=== PATIENT | female | born 1940 | race Caucasian/White ===

== ENCOUNTER 2018-01-24 08:05 | Inpatient (IN) | payer OTHER, MEDICAID ==
[~2018-01-24] VITALS: Ht 172.7 cm; Wt 119.3 kg
[~2018-01-24 08:05] MED LIST: AMIO200T42 PO; ATOR40TA PO; CLOP75TA52 PO; FURO-93 PO; FURO40TA6 PO; GABA300C PO; GLIP10TA13 PO; HYDR-2440 PO; INSU100I13 SC; INSU100I13 SQ-INSULIN; INSULIN ASPART SQ; LEVO25TA4 PO; LOSA25TA5 PO; METO50TA82 PO; OMEP-110 PO; PANT40TA3 PO; WARF-36 PO; [UNRECOGNIZED DRUG - OTHER] SQ; insulin novolog SC; vicodin
[2018-01-24] MEDS ORDERED: SODIUM CHLORIDE FLUSH 10ML SYR IVF ONE (08:30)
[2018-01-24 08:36] LABS: BASOPHILS # (AUTO) 0.06 x10^3/uL (0-0.1); BASOPHILS % (AUTO) 1 % (0-1); EOSINOPHILS % (AUTO) 0 % (1-7); LYMPHOCYTES # (AUTO) 0.41 x10^3/uL (1-3.4); LYMPHOCYTES % (AUTO) 6 % (22-44); MD NO; MEAN CORPUSCULAR HEMOGLOBIN 28.2 pg (27.0-34.8); MEAN CORPUSCULAR HGB CONC 32.2 g/dL (32.4-35.8); MEAN CORPUSCULAR VOLUME 87.4 fL (80-100); MEAN PLATELET VOLUME 8.4 fL (7.4-10.4); MONOCYTES % (AUTO) 8 % (2-9); NEUTROPHILS # (AUTO) 5.81 x10^3/uL (1.8-6.8); NEUTROPHILS % (AUTO) 86 % (42-75); PLATELET COUNT 234 x10^3/uL (130-400); RED BLOOD COUNT 3.37 x10^6/uL (3.82-5.3); RED CELL DISTRIBUTION WIDTH 21.2 % (9.6-15.2)
[2018-01-24 08:48] LABS: ALANINE AMINOTRANSFERASE 20 U/L (12-78); ALBUMIN 3.5 g/dL (3.4-5.0); ANION GAP 10 mmol/L (5-15); CHLORIDE 106 mmol/L (98-107); CREATININE 3.27 mg/dL (0.55-1.02)
[2018-01-24] MEDS ORDERED: DEXTROSE 50%, 50ML SYRINGE ONE (08:52)
[2018-01-24 08:53] LABS: ALKALINE PHOSPHATASE 102 U/L (45-117); BILIRUBIN,TOTAL 0.8 mg/dL (0.2-1.0); TOTAL PROTEIN 7.1 g/dL (6.4-8.2); TROPONIN I 0.045 ng/mL (0.000-0.045)
[2018-01-24 09:37] LABS: FREE T4 (FREE THYROXINE) 1.85 ng/dL (0.76-1.46); THYROID STIMULATING HORMONE 3.94 mIU/L (0.358-3.740)
[2018-01-24] MEDS ORDERED: FUROSEMIDE 40 MG/4 ML IV ONE (10:00)
[2018-01-24] MEDS ORDERED: DEXTROSE 50%, 50ML SYRINGE IVPush ONE (10:30)
[2018-01-24] MEDS ORDERED: FUROSEMIDE 40 MG/4 ML ONE (10:32)
[2018-01-24] MEDS: D5%-0.9% NACL 1,000 ML IV SCH ×3 (10:50→16:00)
[2018-01-24] MEDS ORDERED: GLUCAGON 1 MG IM PRN (11:00)
[2018-01-24] MEDS ORDERED: DEXTROSE 4 GM TAB.CHEW PO PRN (11:00)
[2018-01-24] MEDS ORDERED: ONDANSETRON 2MG/ML, 2ML IVPush PRN (11:00)
[2018-01-24] MEDS ORDERED: DOCUSATE 100 MG CAPSULE PO PRN (11:00)
[2018-01-24] MEDS ORDERED: DEXTROSE 50%, 50ML SYRINGE IVPush PRN (11:00)
[2018-01-24] MEDS ORDERED: ONDANSETRON ODT 4 MG PO PRN (11:00)
[2018-01-24] MEDS ORDERED: LABETALOL 5MG/ML, 20ML IVPush PRN (11:00)
[2018-01-24] MEDS ORDERED: ENALAPRILAT 1.25 MG/ML, 2ML IVPush PRN (11:00)
[2018-01-24] MEDS: INSULIN LISPRO 100 UNITS/ML, PEN SQ-INSULIN SCH ×2 (11:12→16:00)
[2018-01-24] MEDS ORDERED: D5%-0.9% NACL 1,000 ML IV SCH (11:30)
[2018-01-24] MEDS: LEVOTHYROXINE 25 MCG TABLET PO SCH (11:30)
[2018-01-24 12:09] LABS: CULTURE INDICATED? YES; MICROSCOPIC INDICATED
[2018-01-24] MEDS ORDERED: CEFTRIAXONE 1,000 MG in DEXTROSE 5% 50 ML IV ONE (13:30)
[2018-01-24] MEDS ORDERED: CEFTRIAXONE PMX 1GM/50ML 50 ML IV SCH (14:00)
[2018-01-24 14:29] VITALS: BP 138/74
[2018-01-24 14:55] LABS: TROPONIN I 0.054 ng/mL (0.000-0.045)
[2018-01-24 15:08] LABS: INTERNATIONAL NORMALIZED RATIO 1.88 (0.93-1.1); PROTHROMBIN TIME 19.3 Seconds (9.6-11.5)
[2018-01-24] MEDS ORDERED: SUCR1TAB PO (18:25)
[2018-01-24] MEDS ORDERED: CALC0.25 PO (18:25)
[2018-01-24] MEDS ORDERED: OXYC1TAB9 PO (18:25)
[2018-01-24] MEDS ORDERED: FURO40TA6 PO (18:25)
[2018-01-24 19:35] VITALS: BP 128/68
[2018-01-24] MEDS ORDERED: OXYcodone IR 5MG TABLET ONE (21:10)
[2018-01-24] MEDS: CEFTRIAXONE 1,000 MG in DEXTROSE 5% 50 ML IV SCH (21:17)
[2018-01-24] MEDS: SODIUM CHLORIDE FLUSH 10ML SYR IVF SCH (21:20)
[2018-01-24] MEDS: METOPROLOL TARTRATE 50 MG TABLET PO SCH (21:21)
[2018-01-24] MEDS: OXYcodone 5 MG/5 ML ORAL.SOL UDC PO PRN (21:21)
[2018-01-24] MEDS: ATORVASTATIN 40 MG TABLET PO SCH (21:21)
[2018-01-24] MEDS: AMIODARONE 200 MG TABLET PO SCH (21:21)
[2018-01-24 22:14] LABS: RAPID INFLUENZA A Negative (Negative); RAPID INFLUENZA B Negative (Negative)
[2018-01-25 01:44] VITALS: BP 133/72
[2018-01-25] MEDS: D5%-0.9% NACL 1,000 ML IV SCH (02:09)
[2018-01-25 05:18] LABS: ANION GAP 9 mmol/L (5-15); CALCIUM 7.6 mg/dL (8.5-10.1); CHLORIDE 107 mmol/L (98-107)
[2018-01-25 05:19] LABS: CREATININE 3.04 mg/dL (0.55-1.02)
[2018-01-25 05:20] LABS: BASOPHILS # (AUTO) 0.05 x10^3/uL (0-0.1); BASOPHILS % (AUTO) 1 % (0-1); EOSINOPHILS # (AUTO) 0.04 x10^3/uL (0-0.4); EOSINOPHILS % (AUTO) 1 % (1-7); LYMPHOCYTES # (AUTO) 0.46 x10^3/uL (1-3.4); LYMPHOCYTES % (AUTO) 8 % (22-44); MD NO; MEAN CORPUSCULAR HEMOGLOBIN 28.4 pg (27.0-34.8); MEAN CORPUSCULAR HGB CONC 32.1 g/dL (32.4-35.8); MEAN CORPUSCULAR VOLUME 88.5 fL (80-100); MEAN PLATELET VOLUME 8.6 fL (7.4-10.4); MONOCYTES # (AUTO) 0.57 x10^3/uL (0.2-0.8); MONOCYTES % (AUTO) 10 % (2-9); NEUTROPHILS # (AUTO) 4.38 x10^3/uL (1.8-6.8); NEUTROPHILS % (AUTO) 80 % (42-75); PLATELET COUNT 224 x10^3/uL (130-400); RED BLOOD COUNT 3.06 x10^6/uL (3.82-5.3); RED CELL DISTRIBUTION WIDTH 20.8 % (9.6-15.2)
[2018-01-25] MEDS: LEVOTHYROXINE 25 MCG TABLET PO SCH (05:49)
[2018-01-25 07:00] VITALS: BP 107/68
[2018-01-25] MEDS ORDERED: PANTOPRAZOLE 40 MG IV IVPush SCH (07:30)
[2018-01-25 08:38] LABS: MICROSCOPIC INDICATED
[2018-01-25] MEDS ORDERED: FUROSEMIDE 40 MG/4 ML IV SCH ×2 (09:00→17:00)
[2018-01-25] MEDS ORDERED: LOSARTAN 25MG TABLET PO SCH (09:00)
[2018-01-25] MEDS: METOPROLOL TARTRATE 50 MG TABLET PO SCH ×2 (09:00→10:12)
[2018-01-25] MEDS ORDERED: FUROSEMIDE 40 MG TABLET PO SCH (09:00)
[2018-01-25] MEDS: OMEPRAZOLE 20 MG CAPSULE.DR PO SCH (10:08)
[2018-01-25] MEDS: SUCRALFATE 1 GM TABLET PO SCH (10:08)
[2018-01-25] MEDS: SODIUM CHLORIDE FLUSH 10ML SYR IVF SCH ×2 (10:09→20:47)
[2018-01-25] MEDS: AMIODARONE 200 MG TABLET PO SCH ×2 (10:10→20:48)
[2018-01-25] MEDS ORDERED: ALBUTEROL SULFATE 2.5 MG/3 ML ONE (10:49)
[2018-01-25] MEDS ORDERED: ALBUTEROL SULFATE 2.5 MG/3 ML NPPB PRN (11:00)
[2018-01-25] MEDS: IRON SUCROSE COMPLEX 100MG/5ML IV SCH (13:38)
[2018-01-25 14:20] VITALS: BP 122/67
[2018-01-25] MEDS ORDERED: FERROUS SULFATE 325 MG TABLET PO SCH (17:00)
[2018-01-25] MEDS ORDERED: WARFARIN 5 MG TABLET PO-COUM ONE (18:00)
[2018-01-25] MEDS ORDERED: WARFARIN 3 MG TABLET PO-COUM SCH (18:00)
[2018-01-25] MEDS: ALBUTEROL/IPRATROPIUM 2.5MG/0.5MG, 3 ML NPPB SCH ×2 (19:15→20:00)
[2018-01-25 20:09] VITALS: BP 114/73
[2018-01-25] MEDS: LOSARTAN 25MG TABLET PO SCH (20:47)
[2018-01-25] MEDS: ATORVASTATIN 40 MG TABLET PO SCH (20:47)
[2018-01-25] MEDS: CEFTRIAXONE 1,000 MG in DEXTROSE 5% 50 ML IV SCH (20:47)
[2018-01-25] MEDS: METOPROLOL TARTRATE 25 MG TABLET PO SCH (20:55)
[2018-01-25] MEDS: ACETAMINOPHEN 325 MG TABLET PO PRN (22:47)
[2018-01-26 00:46] VITALS: BP 135/74
[2018-01-26] MEDS ORDERED: OXYcodone IR 5MG TABLET ONE ×2 (01:19→12:35)
[2018-01-26] MEDS: OXYcodone 5 MG/5 ML ORAL.SOL UDC PO PRN ×3 (01:28→21:15)
[2018-01-26 02:36] LABS: CLOSTRIDIUM DIFFICILE ANTIGEN NEGATIVE; CLOSTRIDIUM DIFFICILE TOXIN NEGATIVE (Negative)
[2018-01-26 04:59] LABS: BASOPHILS # (AUTO) 0.05 x10^3/uL (0-0.1); BASOPHILS % (AUTO) 1 % (0-1); EOSINOPHILS # (AUTO) 0.01 x10^3/uL (0-0.4); EOSINOPHILS % (AUTO) 0 % (1-7); LYMPHOCYTES # (AUTO) 0.46 x10^3/uL (1-3.4); LYMPHOCYTES % (AUTO) 8 % (22-44); MD NO; MEAN CORPUSCULAR HEMOGLOBIN 28.4 pg (27.0-34.8); MEAN CORPUSCULAR VOLUME 88.6 fL (80-100); MEAN PLATELET VOLUME 8.8 fL (7.4-10.4); MONOCYTES # (AUTO) 0.48 x10^3/uL (0.2-0.8); MONOCYTES % (AUTO) 9 % (2-9); NEUTROPHILS # (AUTO) 4.62 x10^3/uL (1.8-6.8); NEUTROPHILS % (AUTO) 82 % (42-75); PLATELET COUNT 199 x10^3/uL (130-400); RED BLOOD COUNT 3.23 x10^6/uL (3.82-5.3); RED CELL DISTRIBUTION WIDTH 20.2 % (9.6-15.2)
[2018-01-26 05:09] LABS: INTERNATIONAL NORMALIZED RATIO 1.88 (0.93-1.1); PROTHROMBIN TIME 19.3 Seconds (9.6-11.5)
[2018-01-26 05:19] LABS: ALBUMIN 3.3 g/dL (3.4-5.0); ANION GAP 9 mmol/L (5-15); CALCIUM 7.7 mg/dL (8.5-10.1); CHLORIDE 108 mmol/L (98-107)
[2018-01-26 05:24] LABS: ALANINE AMINOTRANSFERASE 20 U/L (12-78); ALKALINE PHOSPHATASE 90 U/L (45-117); BILIRUBIN,TOTAL 1.2 mg/dL (0.2-1.0); CREATININE 3.09 mg/dL (0.55-1.02)
[2018-01-26] MEDS: LEVOTHYROXINE 25 MCG TABLET PO SCH (06:00)
[2018-01-26] MEDS: ALBUTEROL/IPRATROPIUM 2.5MG/0.5MG, 3 ML NPPB SCH ×4 (06:45→19:23)
[2018-01-26 07:15] VITALS: BP 112/52
[2018-01-26] MEDS: INSULIN LISPRO 100 UNITS/ML, PEN SQ-INSULIN SCH ×4 (08:00→21:11)
[2018-01-26] MEDS ORDERED: FUROSEMIDE 40 MG/4 ML IV ONE ×2 (08:30→09:30)
[2018-01-26] MEDS: METOPROLOL TARTRATE 25 MG TABLET PO SCH ×2 (08:59→21:08)
[2018-01-26] MEDS: OMEPRAZOLE 20 MG CAPSULE.DR PO SCH (08:59)
[2018-01-26] MEDS: SUCRALFATE 1 GM TABLET PO SCH (09:00)
[2018-01-26] MEDS: SODIUM CHLORIDE FLUSH 10ML SYR IVF SCH ×2 (09:00→21:07)
[2018-01-26] MEDS: AMIODARONE 200 MG TABLET PO SCH ×2 (09:00→21:07)
[2018-01-26 13:21] VITALS: BP 110/65
[2018-01-26] MEDS: FUROSEMIDE 40 MG/4 ML IV SCH (17:38)
[2018-01-26] MEDS ORDERED: WARFARIN 7.5 MG TABLET PO-COUM ONE (18:00)
[2018-01-26 21:00] VITALS: BP 115/69
[2018-01-26] MEDS: ATORVASTATIN 40 MG TABLET PO SCH (21:07)
[2018-01-26] MEDS: LOSARTAN 25MG TABLET PO SCH (21:08)
[2018-01-26] MEDS ORDERED: ALBUTEROL SULFATE 2.5 MG/3 ML NPPB PRN (22:00)
[2018-01-27 01:04] VITALS: BP 104/61
[2018-01-27 05:02] LABS: BASOPHILS # (AUTO) 0.04 x10^3/uL (0-0.1); BASOPHILS % (AUTO) 1 % (0-1); EOSINOPHILS # (AUTO) 0.08 x10^3/uL (0-0.4); EOSINOPHILS % (AUTO) 1 % (1-7); LYMPHOCYTES # (AUTO) 0.48 x10^3/uL (1-3.4); LYMPHOCYTES % (AUTO) 9 % (22-44); MD NO; MEAN CORPUSCULAR HEMOGLOBIN 28.5 pg (27.0-34.8); MEAN CORPUSCULAR HGB CONC 32.5 g/dL (32.4-35.8); MEAN CORPUSCULAR VOLUME 87.6 fL (80-100); MEAN PLATELET VOLUME 8.6 fL (7.4-10.4); MONOCYTES # (AUTO) 0.46 x10^3/uL (0.2-0.8); MONOCYTES % (AUTO) 8 % (2-9); NEUTROPHILS # (AUTO) 4.63 x10^3/uL (1.8-6.8); NEUTROPHILS % (AUTO) 81 % (42-75); PLATELET COUNT 215 x10^3/uL (130-400); RED BLOOD COUNT 3.17 x10^6/uL (3.82-5.3); RED CELL DISTRIBUTION WIDTH 20.7 % (9.6-15.2)
[2018-01-27 05:03] LABS: INTERNATIONAL NORMALIZED RATIO 2.07 (0.93-1.1); PROTHROMBIN TIME 21.2 Seconds (9.6-11.5)
[2018-01-27 05:09] LABS: ALBUMIN 3.2 g/dL (3.4-5.0); ANION GAP 12 mmol/L (5-15); CALCIUM 7.8 mg/dL (8.5-10.1); CHLORIDE 105 mmol/L (98-107)
[2018-01-27 05:13] LABS: ALANINE AMINOTRANSFERASE 19 U/L (12-78); ALKALINE PHOSPHATASE 89 U/L (45-117); BILIRUBIN,TOTAL 0.7 mg/dL (0.2-1.0); TOTAL PROTEIN 6.8 g/dL (6.4-8.2)
[2018-01-27] MEDS: LEVOTHYROXINE 25 MCG TABLET PO SCH (05:28)
[2018-01-27 07:00] VITALS: BP 111/65
[2018-01-27] MEDS: INSULIN LISPRO 100 UNITS/ML, PEN SQ-INSULIN SCH ×4 (07:00→21:08)
[2018-01-27 07:01] VITALS: BP 114/78
[2018-01-27 07:02] VITALS: BP 109/76
[2018-01-27] MEDS: ALBUTEROL/IPRATROPIUM 2.5MG/0.5MG, 3 ML NPPB SCH ×4 (07:39→21:10)
[2018-01-27] MEDS: FUROSEMIDE 40 MG/4 ML IV SCH ×2 (08:53→18:25)
[2018-01-27] MEDS: OMEPRAZOLE 20 MG CAPSULE.DR PO SCH (08:53)
[2018-01-27] MEDS: SODIUM CHLORIDE FLUSH 10ML SYR IVF SCH ×2 (09:00→21:00)
[2018-01-27] MEDS: IRON SUCROSE COMPLEX 100MG/5ML IV SCH (10:28)
[2018-01-27] MEDS: AMIODARONE 200 MG TABLET PO SCH ×2 (10:28→21:07)
[2018-01-27] MEDS: METOPROLOL TARTRATE 25 MG TABLET PO SCH ×2 (10:28→21:07)
[2018-01-27] MEDS: SUCRALFATE 1 GM TABLET PO SCH (10:28)
[2018-01-27 12:41] VITALS: BP 94/63
[2018-01-27] MEDS ORDERED: WARFARIN 5 MG TABLET PO-COUM ONE (18:00)
[2018-01-27 19:53] VITALS: BP 117/65
[2018-01-27] MEDS ORDERED: OXYcodone IR 5MG TABLET ONE (20:55)
[2018-01-27] MEDS: OXYcodone 5 MG/5 ML ORAL.SOL UDC PO PRN (21:06)
[2018-01-27] MEDS: ATORVASTATIN 40 MG TABLET PO SCH (21:08)
[2018-01-28] VITALS (7 sets, daily range): BP systolic 94–114; BP diastolic 35–71
[2018-01-28] MEDS: ACETAMINOPHEN 325 MG TABLET PO PRN (01:51)
[2018-01-28 05:30] LABS: BASOPHILS # (AUTO) 0.04 x10^3/uL (0-0.1); BASOPHILS % (AUTO) 1 % (0-1); MD NO; MEAN PLATELET VOLUME 9.1 fL (7.4-10.4); RED BLOOD COUNT 3.09 x10^6/uL (3.82-5.3)
[2018-01-28 05:39] LABS: ALBUMIN 3.1 g/dL (3.4-5.0); ANION GAP 6 mmol/L (5-15); CALCIUM 7.9 mg/dL (8.5-10.1); CHLORIDE 107 mmol/L (98-107)
[2018-01-28] MEDS: LEVOTHYROXINE 25 MCG TABLET PO SCH (05:42)
[2018-01-28 05:44] LABS: ALANINE AMINOTRANSFERASE 17 U/L (12-78); ALKALINE PHOSPHATASE 87 U/L (45-117); BILIRUBIN,TOTAL 0.7 mg/dL (0.2-1.0); CREATININE 3.71 mg/dL (0.55-1.02); INTERNATIONAL NORMALIZED RATIO 2.67 (0.93-1.1); PROTHROMBIN TIME 27.2 Seconds (9.6-11.5); TOTAL PROTEIN 6.7 g/dL (6.4-8.2)
[2018-01-28 06:29] LABS: EOSINOPHILS # (AUTO) 0.04 x10^3/uL (0-0.4); EOSINOPHILS % (AUTO) 1 % (1-7); LYMPHOCYTES # (AUTO) 0.48 x10^3/uL (1-3.4); LYMPHOCYTES % (AUTO) 8 % (22-44); MEAN CORPUSCULAR HEMOGLOBIN 28.4 pg (27.0-34.8); MEAN CORPUSCULAR HGB CONC 32.3 g/dL (32.4-35.8); MONOCYTES % (AUTO) 9 % (2-9); NEUTROPHILS # (AUTO) 4.81 x10^3/uL (1.8-6.8); NEUTROPHILS % (AUTO) 82 % (42-75); PLATELET COUNT 225 x10^3/uL (130-400); RED CELL DISTRIBUTION WIDTH 20.6 % (9.6-15.2)
[2018-01-28] MEDS: INSULIN LISPRO 100 UNITS/ML, PEN SQ-INSULIN SCH ×4 (07:00→20:59)
[2018-01-28] MEDS: ALBUTEROL/IPRATROPIUM 2.5MG/0.5MG, 3 ML NPPB SCH ×4 (07:59→20:00)
[2018-01-28] MEDS: SODIUM CHLORIDE FLUSH 10ML SYR IVF SCH ×2 (09:00→20:59)
[2018-01-28] MEDS: OMEPRAZOLE 20 MG CAPSULE.DR PO SCH (09:59)
[2018-01-28] MEDS: AMIODARONE 200 MG TABLET PO SCH ×2 (09:59→20:58)
[2018-01-28] MEDS: SUCRALFATE 1 GM TABLET PO SCH (09:59)
[2018-01-28] MEDS: FUROSEMIDE 40 MG/4 ML IV SCH ×2 (10:00→17:56)
[2018-01-28 16:50] LABS: MICROSCOPIC NOT IND
[2018-01-28] MEDS ORDERED: WARFARIN 3 MG TABLET PO-COUM ONE (18:00)
[2018-01-28] MEDS: ATORVASTATIN 40 MG TABLET PO SCH (20:57)
[2018-01-28] MEDS: INSULIN GLARGINE 100 UNITS/ML, PEN SQ-INSULIN SCH (20:58)
[2018-01-29 01:26] VITALS: BP 121/63
[2018-01-29 05:14] LABS: INTERNATIONAL NORMALIZED RATIO 3.08 (0.93-1.1); PROTHROMBIN TIME 31.3 Seconds (9.6-11.5)
[2018-01-29 05:21] LABS: ALBUMIN 3.2 g/dL (3.4-5.0); ANION GAP 9 mmol/L (5-15); CHLORIDE 106 mmol/L (98-107)
[2018-01-29] MEDS ORDERED: OXYcodone IR 5MG TABLET ONE ×3 (05:22→19:53)
[2018-01-29 05:24] LABS: ALANINE AMINOTRANSFERASE 16 U/L (12-78); ALKALINE PHOSPHATASE 94 U/L (45-117); BILIRUBIN,TOTAL 0.9 mg/dL (0.2-1.0); CREATININE 3.97 mg/dL (0.55-1.02); TOTAL PROTEIN 6.7 g/dL (6.4-8.2)
[2018-01-29] MEDS: OXYcodone 5 MG/5 ML ORAL.SOL UDC PO PRN ×3 (05:25→19:53)
[2018-01-29] MEDS: LEVOTHYROXINE 25 MCG TABLET PO SCH (05:25)
[2018-01-29 06:55] VITALS: BP 135/76
[2018-01-29] MEDS: ALBUTEROL/IPRATROPIUM 2.5MG/0.5MG, 3 ML NPPB SCH ×4 (07:00→19:35)
[2018-01-29] MEDS: INSULIN LISPRO 100 UNITS/ML, PEN SQ-INSULIN SCH ×4 (07:00→19:51)
[2018-01-29] MEDS: OMEPRAZOLE 20 MG CAPSULE.DR PO SCH (08:36)
[2018-01-29] MEDS: AMIODARONE 200 MG TABLET PO SCH ×2 (08:37→19:52)
[2018-01-29] MEDS: IRON SUCROSE COMPLEX 100MG/5ML IV SCH (08:37)
[2018-01-29] MEDS: SUCRALFATE 1 GM TABLET PO SCH (08:37)
[2018-01-29] MEDS: FUROSEMIDE 40 MG/4 ML IV SCH (08:37)
[2018-01-29] MEDS: SODIUM CHLORIDE FLUSH 10ML SYR IVF SCH ×2 (09:00→19:54)
[2018-01-29] MEDS ORDERED: CHLOROTHIAZIDE 500 MG IV ONE (09:30)
[2018-01-29] MEDS ORDERED: FUROSEMIDE 100 MG in SODIUM CHLORIDE 0.9% 90 ML IV ONE (09:30)
[2018-01-29] MEDS ORDERED: FUROSEMIDE 40 MG/4 ML IV SCH (12:00)
[2018-01-29 13:05] VITALS: BP 128/81
[2018-01-29] MEDS ORDERED: WARFARIN 3 MG TABLET PO-COUM ONE (18:00)
[2018-01-29] MEDS: INSULIN GLARGINE 100 UNITS/ML, PEN SQ-INSULIN SCH (19:51)
[2018-01-29] MEDS: ATORVASTATIN 40 MG TABLET PO SCH (19:51)
[2018-01-29 20:08] VITALS: BP 132/53
[2018-01-29] MEDS: ACETAMINOPHEN 325 MG TABLET PO PRN (21:56)
[2018-01-30 02:00] VITALS: BP 142/57
[2018-01-30] MEDS ORDERED: OXYcodone IR 5MG TABLET ONE (03:11)
[2018-01-30] MEDS: OXYcodone 5 MG/5 ML ORAL.SOL UDC PO PRN (03:13)
[2018-01-30] MEDS: LEVOTHYROXINE 25 MCG TABLET PO SCH (05:00)
[2018-01-30] MEDS: ACETAMINOPHEN 325 MG TABLET PO PRN ×2 (05:01→20:29)
[2018-01-30 05:11] LABS: INTERNATIONAL NORMALIZED RATIO 2.41 (0.93-1.1); PROTHROMBIN TIME 24.6 Seconds (9.6-11.5)
[2018-01-30 05:17] LABS: ANION GAP 11 mmol/L (5-15); CALCIUM 8.3 mg/dL (8.5-10.1); CHLORIDE 105 mmol/L (98-107); CREATININE 3.98 mg/dL (0.55-1.02)
[2018-01-30] MEDS: ALBUTEROL/IPRATROPIUM 2.5MG/0.5MG, 3 ML NPPB SCH ×4 (07:00→19:22)
[2018-01-30 07:27] VITALS: BP 138/54
[2018-01-30] MEDS: INSULIN LISPRO 100 UNITS/ML, PEN SQ-INSULIN SCH ×4 (08:36→20:28)
[2018-01-30] MEDS: OMEPRAZOLE 20 MG CAPSULE.DR PO SCH (08:42)
[2018-01-30] MEDS: SUCRALFATE 1 GM TABLET PO SCH (08:42)
[2018-01-30] MEDS: AMIODARONE 200 MG TABLET PO SCH ×2 (08:42→20:27)
[2018-01-30] MEDS: SODIUM CHLORIDE FLUSH 10ML SYR IVF SCH ×2 (08:42→20:27)
[2018-01-30] MEDS: FUROSEMIDE 100 MG in SODIUM CHLORIDE 0.9% 90 ML IV SCH (11:29)
[2018-01-30 13:47] VITALS: BP 122/70
[2018-01-30] MEDS ORDERED: WARFARIN 3 MG TABLET PO-COUM ONE (18:00)
[2018-01-30 19:49] VITALS: BP 134/55
[2018-01-30] MEDS: ATORVASTATIN 40 MG TABLET PO SCH (20:27)
[2018-01-30] MEDS: INSULIN GLARGINE 100 UNITS/ML, PEN SQ-INSULIN SCH (20:29)
[2018-01-31 02:09] VITALS: BP 107/45
[2018-01-31] MEDS ORDERED: OXYcodone IR 5MG TABLET ONE ×3 (02:31→20:11)
[2018-01-31] MEDS: OXYcodone 5 MG/5 ML ORAL.SOL UDC PO PRN ×3 (02:39→20:21)
[2018-01-31] MEDS: FUROSEMIDE 100 MG in SODIUM CHLORIDE 0.9% 90 ML IV SCH (03:38)
[2018-01-31 05:16] LABS: INTERNATIONAL NORMALIZED RATIO 2.09 (0.93-1.1); PROTHROMBIN TIME 21.4 Seconds (9.6-11.5)
[2018-01-31 05:23] LABS: MEAN CORPUSCULAR HEMOGLOBIN 28.6 pg (27.0-34.8); MEAN CORPUSCULAR HGB CONC 32.2 g/dL (32.4-35.8); MEAN CORPUSCULAR VOLUME 88.9 fL (80-100); MEAN PLATELET VOLUME 8.7 fL (7.4-10.4); PLATELET COUNT 255 x10^3/uL (130-400); RED BLOOD COUNT 3.28 x10^6/uL (3.82-5.3); RED CELL DISTRIBUTION WIDTH 22.1 % (9.6-15.2)
[2018-01-31 05:25] LABS: ALANINE AMINOTRANSFERASE 16 U/L (12-78); ALBUMIN 3.5 g/dL (3.4-5.0); ANION GAP 9 mmol/L (5-15); CALCIUM 8.8 mg/dL (8.5-10.1); CHLORIDE 105 mmol/L (98-107)
[2018-01-31 05:27] LABS: ALKALINE PHOSPHATASE 100 U/L (45-117); BILIRUBIN,TOTAL 0.8 mg/dL (0.2-1.0); CREATININE 3.81 mg/dL (0.55-1.02); TOTAL PROTEIN 7.3 g/dL (6.4-8.2)
[2018-01-31 05:53] LABS: BASOPHILS # (AUTO) 0.06 x10^3/uL (0-0.1); BASOPHILS % (AUTO) 1 % (0-1); EOSINOPHILS # (AUTO) 0.13 x10^3/uL (0-0.4); EOSINOPHILS % (AUTO) 2 % (1-7); LYMPHOCYTES # (AUTO) 0.46 x10^3/uL (1-3.4); LYMPHOCYTES % (AUTO) 7 % (22-44); MD MORPH REVIEW ONLY; MONOCYTES # (AUTO) 0.56 x10^3/uL (0.2-0.8); MONOCYTES % (AUTO) 9 % (2-9); NEUTROPHILS # (AUTO) 5.08 x10^3/uL (1.8-6.8); NEUTROPHILS % (AUTO) 81 % (42-75)
[2018-01-31 05:54] LABS: ANISOCYTOSIS 1+; OVALOCYTES 1+; POLYCHROMASIA 1+
[2018-01-31 05:55] LABS: <PLATELET ESTIMATE> ADEQUATE; <PLT MORPHOLOGY> NORMAL PLT MORPH
[2018-01-31 05:56] LABS: MICROCYTOSIS 1+
[2018-01-31] MEDS: LEVOTHYROXINE 25 MCG TABLET PO SCH (06:13)
[2018-01-31] MEDS: INSULIN LISPRO 100 UNITS/ML, PEN SQ-INSULIN SCH ×4 (07:00→20:20)
[2018-01-31] MEDS: ALBUTEROL/IPRATROPIUM 2.5MG/0.5MG, 3 ML NPPB SCH ×4 (07:10→18:40)
[2018-01-31 08:34] VITALS: BP 158/76
[2018-01-31] MEDS: SUCRALFATE 1 GM TABLET PO SCH (09:07)
[2018-01-31] MEDS: OMEPRAZOLE 20 MG CAPSULE.DR PO SCH (09:07)
[2018-01-31] MEDS: AMIODARONE 200 MG TABLET PO SCH ×2 (09:07→20:17)
[2018-01-31] MEDS: IRON SUCROSE COMPLEX 100MG/5ML IV SCH (09:07)
[2018-01-31] MEDS: SODIUM CHLORIDE FLUSH 10ML SYR IVF SCH ×2 (09:07→20:19)
[2018-01-31 14:41] VITALS: BP 144/74
[2018-01-31] MEDS ORDERED: WARFARIN 2 MG TABLET PO-COUM ONE (18:00)
[2018-01-31 19:22] VITALS: BP 120/64
[2018-01-31] MEDS: ATORVASTATIN 40 MG TABLET PO SCH (20:16)
[2018-01-31] MEDS: INSULIN GLARGINE 100 UNITS/ML, PEN SQ-INSULIN SCH (20:20)
[2018-02-01 01:53] VITALS: BP 112/49
[2018-02-01] MEDS: FUROSEMIDE 100 MG in SODIUM CHLORIDE 0.9% 90 ML IV SCH ×2 (03:00→22:09)
[2018-02-01 05:01] LABS: MEAN CORPUSCULAR HEMOGLOBIN 28.7 pg (27.0-34.8); MEAN CORPUSCULAR HGB CONC 32.5 g/dL (32.4-35.8); MEAN CORPUSCULAR VOLUME 88.4 fL (80-100); MEAN PLATELET VOLUME 8.9 fL (7.4-10.4); PLATELET COUNT 244 x10^3/uL (130-400); RED CELL DISTRIBUTION WIDTH 22.1 % (9.6-15.2)
[2018-02-01 05:05] LABS: INTERNATIONAL NORMALIZED RATIO 2.08 (0.93-1.1); PROTHROMBIN TIME 21.3 Seconds (9.6-11.5)
[2018-02-01 05:11] LABS: ALANINE AMINOTRANSFERASE 15 U/L (12-78); ALBUMIN 3.4 g/dL (3.4-5.0); ANION GAP 12 mmol/L (5-15); CALCIUM 8.3 mg/dL (8.5-10.1); CHLORIDE 104 mmol/L (98-107)
[2018-02-01 05:12] LABS: ALKALINE PHOSPHATASE 98 U/L (45-117); BILIRUBIN,TOTAL 0.7 mg/dL (0.2-1.0)
[2018-02-01 06:02] LABS: BASOPHILS # (AUTO) 0.05 x10^3/uL (0-0.1); BASOPHILS % (AUTO) 1 % (0-1); EOSINOPHILS # (AUTO) 0.06 x10^3/uL (0-0.4); EOSINOPHILS % (AUTO) 1 % (1-7); LYMPHOCYTES # (AUTO) 0.39 x10^3/uL (1-3.4); LYMPHOCYTES % (AUTO) 7 % (22-44); MD SCAN; MONOCYTES # (AUTO) 0.57 x10^3/uL (0.2-0.8); MONOCYTES % (AUTO) 10 % (2-9); NEUTROPHILS # (AUTO) 4.47 x10^3/uL (1.8-6.8); NEUTROPHILS % (AUTO) 81 % (42-75)
[2018-02-01] MEDS: LEVOTHYROXINE 25 MCG TABLET PO SCH (06:24)
[2018-02-01] MEDS: ALBUTEROL/IPRATROPIUM 2.5MG/0.5MG, 3 ML NPPB SCH ×4 (06:50→18:47)
[2018-02-01] MEDS: INSULIN LISPRO 100 UNITS/ML, PEN SQ-INSULIN SCH ×4 (07:00→22:09)
[2018-02-01] MEDS: SODIUM CHLORIDE FLUSH 10ML SYR IVF SCH ×2 (07:19→22:10)
[2018-02-01] MEDS: AMIODARONE 200 MG TABLET PO SCH ×2 (07:19→22:10)
[2018-02-01] MEDS: SUCRALFATE 1 GM TABLET PO SCH (07:19)
[2018-02-01] MEDS: OMEPRAZOLE 20 MG CAPSULE.DR PO SCH (07:19)
[2018-02-01 07:43] VITALS: BP 146/68
[2018-02-01] MEDS: SENNA/DOCUSATE TABLET PO PRN (09:11)
[2018-02-01] MEDS ORDERED: OXYcodone IR 5MG TABLET ONE (10:39)
[2018-02-01] MEDS: OXYcodone 5 MG/5 ML ORAL.SOL UDC PO PRN ×2 (10:45→22:18)
[2018-02-01] MEDS ORDERED: CHLOROTHIAZIDE 500 MG IV ONE (11:00)
[2018-02-01 14:27] VITALS: BP 147/66
[2018-02-01] MEDS ORDERED: WARFARIN 2 MG TABLET PO-COUM ONE (18:00)
[2018-02-01 19:15] VITALS: BP 144/71
[2018-02-01] MEDS: INSULIN GLARGINE 100 UNITS/ML, PEN SQ-INSULIN SCH (22:08)
[2018-02-01] MEDS: ATORVASTATIN 40 MG TABLET PO SCH (22:09)
[2018-02-02 02:18] VITALS: BP 146/72
[2018-02-02 05:04] LABS: MEAN CORPUSCULAR HEMOGLOBIN 28.7 pg (27.0-34.8); MEAN CORPUSCULAR HGB CONC 32.2 g/dL (32.4-35.8); MEAN CORPUSCULAR VOLUME 89.3 fL (80-100); MEAN PLATELET VOLUME 8.7 fL (7.4-10.4); PLATELET COUNT 262 x10^3/uL (130-400); RED BLOOD COUNT 3.32 x10^6/uL (3.82-5.3); RED CELL DISTRIBUTION WIDTH 22.5 % (9.6-15.2)
[2018-02-02 05:06] LABS: INTERNATIONAL NORMALIZED RATIO 2.09 (0.93-1.1); PROTHROMBIN TIME 21.4 Seconds (9.6-11.5)
[2018-02-02 05:14] LABS: ALBUMIN 3.4 g/dL (3.4-5.0); ANION GAP 12 mmol/L (5-15); CALCIUM 8.6 mg/dL (8.5-10.1); CHLORIDE 104 mmol/L (98-107)
[2018-02-02 05:18] LABS: ALANINE AMINOTRANSFERASE 14 U/L (12-78); ALKALINE PHOSPHATASE 97 U/L (45-117); BILIRUBIN,TOTAL 0.8 mg/dL (0.2-1.0); CREATININE 3.74 mg/dL (0.55-1.02); TOTAL PROTEIN 7.2 g/dL (6.4-8.2)
[2018-02-02] MEDS: LEVOTHYROXINE 25 MCG TABLET PO SCH (05:22)
[2018-02-02] MEDS: POLYETHYLENE GLYCOL 17 GM PACKET PO PRN (05:37)
[2018-02-02 06:19] LABS: BASOPHILS # (AUTO) 0.11 x10^3/uL (0-0.1); BASOPHILS % (AUTO) 2 % (0-1); EOSINOPHILS # (AUTO) 0.21 x10^3/uL (0-0.4); EOSINOPHILS % (AUTO) 3 % (1-7); LYMPHOCYTES # (AUTO) 0.56 x10^3/uL (1-3.4); LYMPHOCYTES % (AUTO) 9 % (22-44); MD MORPH REVIEW ONLY; MONOCYTES # (AUTO) 0.61 x10^3/uL (0.2-0.8); MONOCYTES % (AUTO) 10 % (2-9); NEUTROPHILS # (AUTO) 4.55 x10^3/uL (1.8-6.8); NEUTROPHILS % (AUTO) 75 % (42-75)
[2018-02-02 06:23] LABS: ANISOCYTOSIS 1+; MICROCYTOSIS 1+
[2018-02-02 06:24] LABS: <PLATELET ESTIMATE> ADEQUATE; <PLT MORPHOLOGY> NORMAL PLT MORPH; OVALOCYTES 1+
[2018-02-02] MEDS: ALBUTEROL/IPRATROPIUM 2.5MG/0.5MG, 3 ML NPPB SCH ×4 (06:45→18:35)
[2018-02-02] MEDS: INSULIN LISPRO 100 UNITS/ML, PEN SQ-INSULIN SCH ×4 (07:00→19:42)
[2018-02-02 07:54] VITALS: BP 146/64
[2018-02-02] MEDS: OMEPRAZOLE 20 MG CAPSULE.DR PO SCH (08:35)
[2018-02-02] MEDS: SODIUM CHLORIDE FLUSH 10ML SYR IVF SCH ×2 (08:35→19:41)
[2018-02-02] MEDS: SUCRALFATE 1 GM TABLET PO SCH (08:35)
[2018-02-02] MEDS: AMIODARONE 200 MG TABLET PO SCH ×2 (08:35→19:41)
[2018-02-02] MEDS ORDERED: CHLOROTHIAZIDE 500 MG IV ONE (09:30)
[2018-02-02 10:39] LABS: HEMOGLOBIN A1C 6.7 % (4.2-6.3)
[2018-02-02] MEDS: ERGOCALCIFEROL 50,000 UNIT CAPSULE PO SCH (11:17)
[2018-02-02] MEDS: FUROSEMIDE 100 MG in SODIUM CHLORIDE 0.9% 90 ML IV SCH (13:54)
[2018-02-02 14:13] VITALS: BP 120/63
[2018-02-02] MEDS ORDERED: IRON SUCROSE COMPLEX 100MG/5ML ONE ×2 (17:03→17:05)
[2018-02-02] MEDS: IRON SUCROSE COMPLEX 100MG/5ML IV SCH (17:15)
[2018-02-02] MEDS ORDERED: WARFARIN 2 MG TABLET PO-COUM ONE (18:00)
[2018-02-02 19:00] VITALS: BP 138/67
[2018-02-02] MEDS ORDERED: OXYcodone IR 5MG TABLET ONE (19:30)
[2018-02-02] MEDS: OXYcodone 5 MG/5 ML ORAL.SOL UDC PO PRN (19:41)
[2018-02-02] MEDS: ATORVASTATIN 40 MG TABLET PO SCH (19:41)
[2018-02-02] MEDS: INSULIN GLARGINE 100 UNITS/ML, PEN SQ-INSULIN SCH (19:42)
[2018-02-03 00:22] VITALS: BP 106/61
[2018-02-03] MEDS: LEVOTHYROXINE 25 MCG TABLET PO SCH (03:59)
[2018-02-03] MEDS: FUROSEMIDE 100 MG in SODIUM CHLORIDE 0.9% 90 ML IV SCH (04:00)
[2018-02-03 05:31] LABS: MEAN CORPUSCULAR HEMOGLOBIN 28.7 pg (27.0-34.8); MEAN CORPUSCULAR HGB CONC 32.3 g/dL (32.4-35.8); MEAN CORPUSCULAR VOLUME 88.9 fL (80-100); MEAN PLATELET VOLUME 8.9 fL (7.4-10.4); PLATELET COUNT 244 x10^3/uL (130-400); RED BLOOD COUNT 3.29 x10^6/uL (3.82-5.3); RED CELL DISTRIBUTION WIDTH 22.5 % (9.6-15.2)
[2018-02-03 05:34] LABS: INTERNATIONAL NORMALIZED RATIO 1.91 (0.93-1.1); PROTHROMBIN TIME 19.6 Seconds (9.6-11.5)
[2018-02-03 05:42] LABS: ALBUMIN 3.4 g/dL (3.4-5.0); CALCIUM 8.5 mg/dL (8.5-10.1); CHLORIDE 104 mmol/L (98-107)
[2018-02-03 05:50] LABS: BASOPHILS # (AUTO) 0.07 x10^3/uL (0-0.1); BASOPHILS % (AUTO) 1 % (0-1); EOSINOPHILS % (AUTO) 2 % (1-7); LYMPHOCYTES # (AUTO) 0.47 x10^3/uL (1-3.4); LYMPHOCYTES % (AUTO) 9 % (22-44); MD SCAN; MONOCYTES # (AUTO) 0.45 x10^3/uL (0.2-0.8); MONOCYTES % (AUTO) 9 % (2-9); NEUTROPHILS % (AUTO) 79 % (42-75)
[2018-02-03 05:59] LABS: ALANINE AMINOTRANSFERASE 14 U/L (12-78); ALKALINE PHOSPHATASE 97 U/L (45-117); ANION GAP 9 mmol/L (5-15); BILIRUBIN,TOTAL 0.9 mg/dL (0.2-1.0); CREATININE 3.66 mg/dL (0.55-1.02); TOTAL PROTEIN 7.5 g/dL (6.4-8.2)
[2018-02-03] MEDS: ALBUTEROL/IPRATROPIUM 2.5MG/0.5MG, 3 ML NPPB SCH ×4 (07:35→18:36)
[2018-02-03 07:57] VITALS: BP 151/66
[2018-02-03] MEDS: SUCRALFATE 1 GM TABLET PO SCH (07:59)
[2018-02-03] MEDS: AMIODARONE 200 MG TABLET PO SCH ×2 (07:59→21:01)
[2018-02-03] MEDS: SODIUM CHLORIDE FLUSH 10ML SYR IVF SCH ×2 (07:59→21:00)
[2018-02-03] MEDS: OMEPRAZOLE 20 MG CAPSULE.DR PO SCH (07:59)
[2018-02-03] MEDS: INSULIN LISPRO 100 UNITS/ML, PEN SQ-INSULIN SCH ×4 (08:01→21:09)
[2018-02-03] MEDS ORDERED: CHLOROTHIAZIDE 500 MG IV ONE (09:30)
[2018-02-03 12:14] VITALS: BP 121/64
[2018-02-03] MEDS ORDERED: FUROSEMIDE 100 MG in SODIUM CHLORIDE 0.9% 90 ML IV SCH (14:30)
[2018-02-03 15:16] VITALS: BP 122/61
[2018-02-03] MEDS ORDERED: WARFARIN 5 MG TABLET PO-COUM ONE (18:00)
[2018-02-03 19:32] VITALS: BP 120/64
[2018-02-03] MEDS: OXYcodone 5 MG/5 ML ORAL.SOL UDC PO PRN (21:00)
[2018-02-03] MEDS: ATORVASTATIN 40 MG TABLET PO SCH (21:01)
[2018-02-03] MEDS: CEPHALEXIN 500 MG CAPSULE PO SCH (21:01)
[2018-02-03] MEDS: INSULIN GLARGINE 100 UNITS/ML, PEN SQ-INSULIN SCH (21:10)
[2018-02-04 00:01] VITALS: BP 111/63
[2018-02-04] MEDS: LEVOTHYROXINE 25 MCG TABLET PO SCH (06:21)
[2018-02-04 06:44] LABS: INTERNATIONAL NORMALIZED RATIO 1.68 (0.93-1.1); PROTHROMBIN TIME 17.3 Seconds (9.6-11.5)
[2018-02-04 06:47] LABS: ALANINE AMINOTRANSFERASE 15 U/L (12-78); ALBUMIN 3.3 g/dL (3.4-5.0); ANION GAP 8 mmol/L (5-15); CALCIUM 8.5 mg/dL (8.5-10.1); CHLORIDE 103 mmol/L (98-107); CREATININE 3.63 mg/dL (0.55-1.02)
[2018-02-04 06:49] LABS: ALKALINE PHOSPHATASE 94 U/L (45-117); BILIRUBIN,TOTAL 1.2 mg/dL (0.2-1.0); TOTAL PROTEIN 7.1 g/dL (6.4-8.2)
[2018-02-04] MEDS: INSULIN LISPRO 100 UNITS/ML, PEN SQ-INSULIN SCH ×4 (07:00→20:19)
[2018-02-04] MEDS: ALBUTEROL/IPRATROPIUM 2.5MG/0.5MG, 3 ML NPPB SCH ×4 (07:15→20:31)
[2018-02-04] MEDS ORDERED: FUROSEMIDE 100 MG in SODIUM CHLORIDE 0.9% 90 ML IV SCH (08:00)
[2018-02-04] MEDS: CEPHALEXIN 500 MG CAPSULE PO SCH ×2 (08:09→20:11)
[2018-02-04] MEDS: OMEPRAZOLE 20 MG CAPSULE.DR PO SCH (08:09)
[2018-02-04] MEDS: SUCRALFATE 1 GM TABLET PO SCH (08:09)
[2018-02-04] MEDS: SODIUM CHLORIDE FLUSH 10ML SYR IVF SCH ×2 (08:10→20:11)
[2018-02-04] MEDS: AMIODARONE 200 MG TABLET PO SCH ×2 (08:10→20:11)
[2018-02-04 08:16] VITALS: BP 154/74
[2018-02-04 14:13] VITALS: BP 130/68
[2018-02-04] MEDS ORDERED: WARFARIN 7.5 MG TABLET PO-COUM SCH (18:00)
[2018-02-04] MEDS: FUROSEMIDE 100 MG in SODIUM CHLORIDE 0.9% 90 ML IV SCH (18:26)
[2018-02-04 19:29] VITALS: BP 147/75
[2018-02-04] MEDS: ATORVASTATIN 40 MG TABLET PO SCH (20:11)
[2018-02-04] MEDS: OXYcodone 5 MG/5 ML ORAL.SOL UDC PO PRN (20:11)
[2018-02-04] MEDS: INSULIN GLARGINE 100 UNITS/ML, PEN SQ-INSULIN SCH (20:18)
[2018-02-05 03:44] VITALS: BP 138/63
[2018-02-05 05:11] LABS: INTERNATIONAL NORMALIZED RATIO 1.67 (0.93-1.1); PROTHROMBIN TIME 17.2 Seconds (9.6-11.5)
[2018-02-05 05:15] LABS: ALBUMIN 3.4 g/dL (3.4-5.0); ANION GAP 11 mmol/L (5-15); CALCIUM 8.5 mg/dL (8.5-10.1); CHLORIDE 100 mmol/L (98-107)
[2018-02-05 05:18] LABS: ALANINE AMINOTRANSFERASE 14 U/L (12-78); ALKALINE PHOSPHATASE 100 U/L (45-117); BILIRUBIN,TOTAL 1.1 mg/dL (0.2-1.0); CREATININE 3.52 mg/dL (0.55-1.02); TOTAL PROTEIN 7.4 g/dL (6.4-8.2)
[2018-02-05] MEDS: LEVOTHYROXINE 25 MCG TABLET PO SCH (05:26)
[2018-02-05] MEDS: FUROSEMIDE 100 MG in SODIUM CHLORIDE 0.9% 90 ML IV SCH ×2 (05:27→20:16)
[2018-02-05] MEDS: INSULIN LISPRO 100 UNITS/ML, PEN SQ-INSULIN SCH ×4 (07:00→20:26)
[2018-02-05] MEDS: ALBUTEROL/IPRATROPIUM 2.5MG/0.5MG, 3 ML NPPB SCH ×4 (07:00→20:00)
[2018-02-05] MEDS: OMEPRAZOLE 20 MG CAPSULE.DR PO SCH (07:39)
[2018-02-05 08:08] VITALS: BP 131/71
[2018-02-05] MEDS: SUCRALFATE 1 GM TABLET PO SCH (09:11)
[2018-02-05] MEDS: CEPHALEXIN 500 MG CAPSULE PO SCH ×2 (09:11→20:16)
[2018-02-05] MEDS: SODIUM CHLORIDE FLUSH 10ML SYR IVF SCH ×2 (09:12→20:16)
[2018-02-05] MEDS: AMIODARONE 200 MG TABLET PO SCH ×2 (09:12→20:15)
[2018-02-05 13:45] VITALS: BP 116/70
[2018-02-05] MEDS ORDERED: WARFARIN 5 MG TABLET PO-COUM SCH (18:00)
[2018-02-05] MEDS: OXYcodone 5 MG/5 ML ORAL.SOL UDC PO PRN (18:29)
[2018-02-05 19:25] VITALS: BP 133/55
[2018-02-05] MEDS: ATORVASTATIN 40 MG TABLET PO SCH (20:15)
[2018-02-05] MEDS: INSULIN GLARGINE 100 UNITS/ML, PEN SQ-INSULIN SCH (20:26)
[2018-02-06 01:20] VITALS: BP 128/68
[2018-02-06 04:36] LABS: INTERNATIONAL NORMALIZED RATIO 1.67 (0.93-1.1); PROTHROMBIN TIME 17.2 Seconds (9.6-11.5)
[2018-02-06 04:42] LABS: ALANINE AMINOTRANSFERASE 13 U/L (12-78); ALBUMIN 3.3 g/dL (3.4-5.0); ANION GAP 10 mmol/L (5-15); CALCIUM 8.4 mg/dL (8.5-10.1); CHLORIDE 102 mmol/L (98-107)
[2018-02-06 04:45] LABS: ALKALINE PHOSPHATASE 93 U/L (45-117); BILIRUBIN,TOTAL 0.8 mg/dL (0.2-1.0); TOTAL PROTEIN 7.2 g/dL (6.4-8.2)
[2018-02-06] MEDS: LEVOTHYROXINE 25 MCG TABLET PO SCH (05:52)
[2018-02-06] MEDS: ALBUTEROL/IPRATROPIUM 2.5MG/0.5MG, 3 ML NPPB SCH ×4 (07:00→20:20)
[2018-02-06] MEDS: INSULIN LISPRO 100 UNITS/ML, PEN SQ-INSULIN SCH ×4 (07:49→20:53)
[2018-02-06] MEDS: OXYcodone 5 MG/5 ML ORAL.SOL UDC PO PRN ×2 (08:05→20:44)
[2018-02-06] MEDS: CEPHALEXIN 500 MG CAPSULE PO SCH ×2 (08:06→20:40)
[2018-02-06] MEDS: SODIUM CHLORIDE FLUSH 10ML SYR IVF SCH ×2 (08:06→20:40)
[2018-02-06] MEDS: AMIODARONE 200 MG TABLET PO SCH ×2 (08:06→20:40)
[2018-02-06] MEDS: SUCRALFATE 1 GM TABLET PO SCH (08:06)
[2018-02-06] MEDS: OMEPRAZOLE 20 MG CAPSULE.DR PO SCH (08:09)
[2018-02-06] MEDS: FUROSEMIDE 100 MG in SODIUM CHLORIDE 0.9% 90 ML IV SCH ×3 (09:05→18:44)
[2018-02-06 09:28] VITALS: BP 127/67
[2018-02-06] MEDS ORDERED: BISACODYL 10 MG SUPP PR PRN (09:30)
[2018-02-06] MEDS ORDERED: LACTULOSE 20 GM/30 ML UDC PO PRN (09:30)
[2018-02-06] MEDS: CALCITRIOL 0.25 MCG CAPSULE PO SCH (11:23)
[2018-02-06] MEDS: METOLAZONE 5 MG TABLET PO SCH (11:23)
[2018-02-06 13:00] VITALS: BP 136/63
[2018-02-06] MEDS ORDERED: WARFARIN 7.5 MG TABLET PO-COUM SCH (18:00)
[2018-02-06 19:20] VITALS: BP 131/62
[2018-02-06] MEDS: SENNA/DOCUSATE TABLET PO SCH (20:40)
[2018-02-06] MEDS: ATORVASTATIN 40 MG TABLET PO SCH (20:40)
[2018-02-06] MEDS: INSULIN GLARGINE 100 UNITS/ML, PEN SQ-INSULIN SCH (20:53)
[2018-02-07 00:42] VITALS: BP 145/65
[2018-02-07] MEDS: LEVOTHYROXINE 25 MCG TABLET PO SCH (05:11)
[2018-02-07] MEDS: FUROSEMIDE 100 MG in SODIUM CHLORIDE 0.9% 90 ML IV SCH ×2 (05:11→17:10)
[2018-02-07 05:36] LABS: INTERNATIONAL NORMALIZED RATIO 1.84 (0.93-1.1); PROTHROMBIN TIME 18.9 Seconds (9.6-11.5)
[2018-02-07 05:42] LABS: CHLORIDE 100 mmol/L (98-107)
[2018-02-07 05:46] LABS: MEAN CORPUSCULAR HEMOGLOBIN 29.1 pg (27.0-34.8); MEAN CORPUSCULAR HGB CONC 32.5 g/dL (32.4-35.8); MEAN CORPUSCULAR VOLUME 89.7 fL (80-100); MEAN PLATELET VOLUME 9.4 fL (7.4-10.4); PLATELET COUNT 219 x10^3/uL (130-400); RED BLOOD COUNT 3.32 x10^6/uL (3.82-5.3); RED CELL DISTRIBUTION WIDTH 23.5 % (9.6-15.2)
[2018-02-07 05:56] LABS: % IRON SATURATION 14 % (20-55); ALANINE AMINOTRANSFERASE 13 U/L (12-78); ALBUMIN 3.3 g/dL (3.4-5.0); ALKALINE PHOSPHATASE 97 U/L (45-117); ANION GAP 11 mmol/L (5-15); BILIRUBIN,TOTAL 0.9 mg/dL (0.2-1.0); CALCIUM 8.2 mg/dL (8.5-10.1); CREATININE 3.45 mg/dL (0.55-1.02); IRON LEVEL 39 mcg/dL (50-170); TOTAL IRON BINDING CAPACITY 279 mcg/dL (250-450); TOTAL PROTEIN 7.6 g/dL (6.4-8.2)
[2018-02-07 06:35] LABS: MD YES
[2018-02-07 06:37] LABS: ANISOCYTOSIS 1+; BASOS#(MANUAL) 0.05 x10^3/uL (0-0.1); BASOS% (MANUAL) 1 % (0-1); EOS#(MANUAL) 0.14 x10^3/uL (0.0-0.4); EOS% (MANUAL) 3 % (1-7); LYMPH#(MANUAL) 0.47 x10^3/uL (1-3.4); LYMPHS% (MANUAL) 10 % (22-44); MONOS#(MANUAL) 0.28 x10^3/uL (0.3-2.7); MONOS% (MANUAL) 6 % (2-9); SEG#(MANUAL) 3.76 x10^3/uL (1.8-6.8); SEGS% (MANUAL) 80 % (42-75)
[2018-02-07 06:38] LABS: <PLATELET ESTIMATE> ADEQUATE; <PLT MORPHOLOGY> NORMAL PLT MORPH; OVALOCYTES 1+; POLYCHROMASIA 1+
[2018-02-07 06:49] VITALS: BP 136/74
[2018-02-07] MEDS: ALBUTEROL/IPRATROPIUM 2.5MG/0.5MG, 3 ML NPPB SCH ×4 (07:25→20:35)
[2018-02-07] MEDS: INSULIN LISPRO 100 UNITS/ML, PEN SQ-INSULIN SCH ×4 (08:36→20:16)
[2018-02-07] MEDS: POLYETHYLENE GLYCOL 17 GM PACKET PO PRN (08:40)
[2018-02-07] MEDS: CEPHALEXIN 500 MG CAPSULE PO SCH ×2 (08:41→20:16)
[2018-02-07] MEDS: METOLAZONE 5 MG TABLET PO SCH (08:41)
[2018-02-07] MEDS: DOCUSATE 100 MG CAPSULE PO SCH (08:41)
[2018-02-07] MEDS: CALCITRIOL 0.25 MCG CAPSULE PO SCH (08:41)
[2018-02-07] MEDS: AMIODARONE 200 MG TABLET PO SCH ×2 (08:42→20:17)
[2018-02-07] MEDS: SENNA/DOCUSATE TABLET PO PRN (08:42)
[2018-02-07] MEDS: SUCRALFATE 1 GM TABLET PO SCH (08:42)
[2018-02-07] MEDS: OMEPRAZOLE 20 MG CAPSULE.DR PO SCH (08:42)
[2018-02-07] MEDS: SODIUM CHLORIDE FLUSH 10ML SYR IVF SCH ×2 (08:43→20:17)
[2018-02-07] MEDS ORDERED: EPINEPHRINE 1 MG/ML, 1ML SQ ONE (10:30)
[2018-02-07] MEDS ORDERED: IRON DEXTRAN COMPLEX 25 MG in SODIUM CHLORIDE 0.9% 50 ML IV ONE (10:30)
[2018-02-07] MEDS ORDERED: POTASSIUM CHLORIDE 20 MEQ in SODIUM CHLORIDE 0.9% 250 ML IV ONE (10:30)
[2018-02-07 12:26] VITALS: BP 93/54
[2018-02-07] MEDS: OXYcodone 5 MG/5 ML ORAL.SOL UDC PO PRN (17:08)
[2018-02-07] MEDS: IRON SUCROSE COMPLEX 100MG/5ML IV SCH (17:09)
[2018-02-07] MEDS ORDERED: WARFARIN 5 MG TABLET PO-COUM ONE (18:00)
[2018-02-07 19:26] VITALS: BP 168/64
[2018-02-07] MEDS: INSULIN GLARGINE 100 UNITS/ML, PEN SQ-INSULIN SCH (20:16)
[2018-02-07] MEDS: ATORVASTATIN 40 MG TABLET PO SCH (20:16)
[2018-02-07] MEDS: SENNA/DOCUSATE TABLET PO SCH (20:17)
[2018-02-08 01:09] VITALS: BP 133/67
[2018-02-08] MEDS: FUROSEMIDE 100 MG in SODIUM CHLORIDE 0.9% 90 ML IV SCH ×3 (01:19→23:50)
[2018-02-08 04:36] LABS: MEAN CORPUSCULAR HEMOGLOBIN 29.2 pg (27.0-34.8); MEAN CORPUSCULAR HGB CONC 32.5 g/dL (32.4-35.8); MEAN CORPUSCULAR VOLUME 89.8 fL (80-100); MEAN PLATELET VOLUME 9.1 fL (7.4-10.4); PLATELET COUNT 199 x10^3/uL (130-400); RED BLOOD COUNT 3.33 x10^6/uL (3.82-5.3); RED CELL DISTRIBUTION WIDTH 22.5 % (9.6-15.2)
[2018-02-08 04:46] LABS: INTERNATIONAL NORMALIZED RATIO 2.1 (0.93-1.1); PROTHROMBIN TIME 21.5 Seconds (9.6-11.5)
[2018-02-08 04:53] LABS: ALBUMIN 3.3 g/dL (3.4-5.0); ANION GAP 10 mmol/L (5-15); CALCIUM 8.4 mg/dL (8.5-10.1); CHLORIDE 99 mmol/L (98-107); CREATININE 3.51 mg/dL (0.55-1.02)
[2018-02-08] MEDS ORDERED: MAGNESIUM SULFATE PMX 2GM/50ML 50 ML IV ONE (05:30)
[2018-02-08] MEDS ORDERED: POTASSIUM CHLORIDE 20 MEQ TAB.ER.PRT PO ONE (05:30)
[2018-02-08 05:43] LABS: BASOPHILS # (AUTO) 0.07 x10^3/uL (0-0.1); BASOPHILS % (AUTO) 2 % (0-1); EOSINOPHILS # (AUTO) 0.09 x10^3/uL (0-0.4); EOSINOPHILS % (AUTO) 2 % (1-7); LYMPHOCYTES # (AUTO) 0.51 x10^3/uL (1-3.4); LYMPHOCYTES % (AUTO) 11 % (22-44); MD SCAN; MONOCYTES % (AUTO) 11 % (2-9); NEUTROPHILS # (AUTO) 3.33 x10^3/uL (1.8-6.8); NEUTROPHILS % (AUTO) 74 % (42-75)
[2018-02-08] MEDS: LEVOTHYROXINE 25 MCG TABLET PO SCH (05:59)
[2018-02-08] MEDS: ALBUTEROL/IPRATROPIUM 2.5MG/0.5MG, 3 ML NPPB SCH ×4 (06:45→19:58)
[2018-02-08 07:16] VITALS: BP 137/75
[2018-02-08] MEDS: INSULIN LISPRO 100 UNITS/ML, PEN SQ-INSULIN SCH ×4 (08:11→21:03)
[2018-02-08] MEDS: CEPHALEXIN 500 MG CAPSULE PO SCH ×2 (08:19→19:48)
[2018-02-08] MEDS: METOLAZONE 5 MG TABLET PO SCH (08:19)
[2018-02-08] MEDS: DOCUSATE 100 MG CAPSULE PO SCH (08:19)
[2018-02-08] MEDS: SUCRALFATE 1 GM TABLET PO SCH (08:19)
[2018-02-08] MEDS: OMEPRAZOLE 20 MG CAPSULE.DR PO SCH (08:20)
[2018-02-08] MEDS: CALCITRIOL 0.25 MCG CAPSULE PO SCH (08:20)
[2018-02-08] MEDS: SODIUM CHLORIDE FLUSH 10ML SYR IVF SCH ×2 (08:20→21:02)
[2018-02-08] MEDS: AMIODARONE 200 MG TABLET PO SCH ×2 (08:23→19:47)
[2018-02-08] MEDS: OXYcodone 5 MG/5 ML ORAL.SOL UDC PO PRN ×2 (11:55→22:20)
[2018-02-08 12:15] VITALS: BP 104/40
[2018-02-08] MEDS ORDERED: WARFARIN 5 MG TABLET PO-COUM ONE (18:00)
[2018-02-08] MEDS: IRON SUCROSE COMPLEX 100MG/5ML IV SCH (18:38)
[2018-02-08 19:10] VITALS: BP 107/63
[2018-02-08] MEDS: ACETAMINOPHEN 325 MG TABLET PO PRN (19:47)
[2018-02-08] MEDS: ATORVASTATIN 40 MG TABLET PO SCH (19:47)
[2018-02-08] MEDS: INSULIN GLARGINE 100 UNITS/ML, PEN SQ-INSULIN SCH (21:02)
[2018-02-09 01:16] VITALS: BP 111/64
[2018-02-09] MEDS: OXYcodone 5 MG/5 ML ORAL.SOL UDC PO PRN ×2 (05:14→20:03)
[2018-02-09] MEDS: LEVOTHYROXINE 25 MCG TABLET PO SCH (05:14)
[2018-02-09 05:57] LABS: INTERNATIONAL NORMALIZED RATIO 2.56 (0.93-1.1); PROTHROMBIN TIME 26.1 Seconds (9.6-11.5)
[2018-02-09 05:58] LABS: MEAN CORPUSCULAR HEMOGLOBIN 28.5 pg (27.0-34.8); MEAN CORPUSCULAR HGB CONC 32.2 g/dL (32.4-35.8); MEAN CORPUSCULAR VOLUME 88.8 fL (80-100); MEAN PLATELET VOLUME 9.4 fL (7.4-10.4); PLATELET COUNT 214 x10^3/uL (130-400); RED BLOOD COUNT 3.44 x10^6/uL (3.82-5.3); RED CELL DISTRIBUTION WIDTH 22.9 % (9.6-15.2)
[2018-02-09 06:04] LABS: CHLORIDE 97 mmol/L (98-107)
[2018-02-09 06:09] LABS: ALBUMIN 3.4 g/dL (3.4-5.0); ANION GAP 9 mmol/L (5-15); CALCIUM 8.5 mg/dL (8.5-10.1); CREATININE 2.91 mg/dL (0.55-1.02)
[2018-02-09 06:19] LABS: BASOPHILS # (AUTO) 0.05 x10^3/uL (0-0.1); BASOPHILS % (AUTO) 1 % (0-1); EOSINOPHILS % (AUTO) 0 % (1-7); LYMPHOCYTES # (AUTO) 0.57 x10^3/uL (1-3.4); LYMPHOCYTES % (AUTO) 12 % (22-44); MD SCAN; MONOCYTES # (AUTO) 0.47 x10^3/uL (0.2-0.8); MONOCYTES % (AUTO) 10 % (2-9); NEUTROPHILS % (AUTO) 77 % (42-75)
[2018-02-09] MEDS: FUROSEMIDE 100 MG in SODIUM CHLORIDE 0.9% 90 ML IV SCH (06:37)
[2018-02-09] MEDS: ALBUTEROL/IPRATROPIUM 2.5MG/0.5MG, 3 ML NPPB SCH ×4 (06:55→19:27)
[2018-02-09] MEDS: INSULIN LISPRO 100 UNITS/ML, PEN SQ-INSULIN SCH ×4 (07:17→21:39)
[2018-02-09 07:30] VITALS: BP 124/66
[2018-02-09] MEDS: DOCUSATE 100 MG CAPSULE PO SCH (07:57)
[2018-02-09] MEDS: SUCRALFATE 1 GM TABLET PO SCH (07:57)
[2018-02-09] MEDS: CEPHALEXIN 500 MG CAPSULE PO SCH (07:58)
[2018-02-09] MEDS: METOLAZONE 5 MG TABLET PO SCH (07:58)
[2018-02-09] MEDS: SODIUM CHLORIDE FLUSH 10ML SYR IVF SCH ×2 (07:58→20:03)
[2018-02-09] MEDS: AMIODARONE 200 MG TABLET PO SCH ×2 (07:58→20:03)
[2018-02-09] MEDS: OMEPRAZOLE 20 MG CAPSULE.DR PO SCH (07:58)
[2018-02-09] MEDS: CALCITRIOL 0.25 MCG CAPSULE PO SCH (07:58)
[2018-02-09] MEDS: ERGOCALCIFEROL 50,000 UNIT CAPSULE PO SCH (08:01)
[2018-02-09] MEDS ORDERED: DARBEPOETIN 100 MCG/ML SQ SCH (10:30)
[2018-02-09 12:27] VITALS: BP 114/61
[2018-02-09] MEDS: CLINDAMYCIN 300 MG CAPSULE PO SCH ×3 (12:41→21:40)
[2018-02-09] MEDS: IRON SUCROSE COMPLEX 100MG/5ML IV SCH (16:13)
[2018-02-09] MEDS: FUROSEMIDE 80 MG TABLET PO SCH (16:13)
[2018-02-09] MEDS ORDERED: WARFARIN 2 MG TABLET PO-COUM ONE (18:00)
[2018-02-09 20:00] VITALS: BP 117/75
[2018-02-09] MEDS: ATORVASTATIN 40 MG TABLET PO SCH (20:02)
[2018-02-09] MEDS: SENNA/DOCUSATE TABLET PO PRN (21:39)
[2018-02-09] MEDS: INSULIN GLARGINE 100 UNITS/ML, PEN SQ-INSULIN SCH (21:39)
[2018-02-10] VITALS (9 sets, daily range): BP systolic 88–136; BP diastolic 30–70
[2018-02-10] MEDS: CLINDAMYCIN 300 MG CAPSULE PO SCH ×3 (04:40→17:36)
[2018-02-10] MEDS: LEVOTHYROXINE 25 MCG TABLET PO SCH (04:41)
[2018-02-10 05:17] LABS: INTERNATIONAL NORMALIZED RATIO 2.95 (0.93-1.1)
[2018-02-10 05:22] LABS: ALBUMIN 3.4 g/dL (3.4-5.0); ANION GAP 7 mmol/L (5-15); CALCIUM 8.3 mg/dL (8.5-10.1); CHLORIDE 98 mmol/L (98-107); CREATININE 2.82 mg/dL (0.55-1.02)
[2018-02-10 05:24] LABS: BASOPHILS # (AUTO) 0.05 x10^3/uL (0-0.1); BASOPHILS % (AUTO) 1 % (0-1); EOSINOPHILS # (AUTO) 0.08 x10^3/uL (0-0.4); EOSINOPHILS % (AUTO) 2 % (1-7); LYMPHOCYTES # (AUTO) 0.58 x10^3/uL (1-3.4); LYMPHOCYTES % (AUTO) 12 % (22-44); MD NO; MEAN CORPUSCULAR HEMOGLOBIN 28.9 pg (27.0-34.8); MEAN CORPUSCULAR HGB CONC 32.4 g/dL (32.4-35.8); MEAN CORPUSCULAR VOLUME 89.2 fL (80-100); MEAN PLATELET VOLUME 9.1 fL (7.4-10.4); MONOCYTES # (AUTO) 0.49 x10^3/uL (0.2-0.8); MONOCYTES % (AUTO) 10 % (2-9); NEUTROPHILS % (AUTO) 76 % (42-75); PLATELET COUNT 210 x10^3/uL (130-400); RED BLOOD COUNT 3.49 x10^6/uL (3.82-5.3); RED CELL DISTRIBUTION WIDTH 23.1 % (9.6-15.2)
[2018-02-10] MEDS: INSULIN LISPRO 100 UNITS/ML, PEN SQ-INSULIN SCH ×4 (07:16→20:29)
[2018-02-10] MEDS: ALBUTEROL/IPRATROPIUM 2.5MG/0.5MG, 3 ML NPPB SCH ×5 (07:35→19:25)
[2018-02-10] MEDS: AMIODARONE 200 MG TABLET PO SCH ×2 (08:15→20:28)
[2018-02-10] MEDS: FUROSEMIDE 80 MG TABLET PO SCH ×2 (08:15→17:36)
[2018-02-10] MEDS: CALCITRIOL 0.25 MCG CAPSULE PO SCH (08:15)
[2018-02-10] MEDS: SODIUM CHLORIDE FLUSH 10ML SYR IVF SCH ×2 (08:15→20:28)
[2018-02-10] MEDS: DOCUSATE 100 MG CAPSULE PO SCH (08:15)
[2018-02-10] MEDS: SUCRALFATE 1 GM TABLET PO SCH (08:15)
[2018-02-10] MEDS: OMEPRAZOLE 20 MG CAPSULE.DR PO SCH (08:15)
[2018-02-10] MEDS: IRON SUCROSE COMPLEX 100MG/5ML IV SCH (14:06)
[2018-02-10] MEDS: ATORVASTATIN 40 MG TABLET PO SCH (20:27)
[2018-02-10] MEDS: OXYcodone 5 MG/5 ML ORAL.SOL UDC PO PRN (20:27)
[2018-02-10] MEDS: INSULIN GLARGINE 100 UNITS/ML, PEN SQ-INSULIN SCH (20:28)
[2018-02-11] MEDS: CLINDAMYCIN 300 MG CAPSULE PO SCH ×5 (00:06→20:18)
[2018-02-11 01:33] VITALS: BP 139/76
[2018-02-11] MEDS: LEVOTHYROXINE 25 MCG TABLET PO SCH ×2 (04:36→06:00)
[2018-02-11 04:42] LABS: MEAN CORPUSCULAR HGB CONC 32.4 g/dL (32.4-35.8); MEAN CORPUSCULAR VOLUME 89.5 fL (80-100); MEAN PLATELET VOLUME 8.6 fL (7.4-10.4); PLATELET COUNT 219 x10^3/uL (130-400); RED BLOOD COUNT 3.67 x10^6/uL (3.82-5.3)
[2018-02-11 04:47] LABS: INTERNATIONAL NORMALIZED RATIO 2.81 (0.93-1.1); PROTHROMBIN TIME 28.6 Seconds (9.6-11.5)
[2018-02-11 04:51] LABS: ALBUMIN 3.7 g/dL (3.4-5.0); ANION GAP 9 mmol/L (5-15); CALCIUM 8.6 mg/dL (8.5-10.1); CHLORIDE 98 mmol/L (98-107)
[2018-02-11 04:55] LABS: ALANINE AMINOTRANSFERASE 14 U/L (12-78); ALKALINE PHOSPHATASE 104 U/L (45-117); CREATININE 2.94 mg/dL (0.55-1.02)
[2018-02-11 05:17] LABS: BASOPHILS # (AUTO) 0.07 x10^3/uL (0-0.1); BASOPHILS % (AUTO) 1 % (0-1); EOSINOPHILS # (AUTO) 0.11 x10^3/uL (0-0.4); EOSINOPHILS % (AUTO) 2 % (1-7); LYMPHOCYTES # (AUTO) 0.64 x10^3/uL (1-3.4); LYMPHOCYTES % (AUTO) 12 % (22-44); MD SCAN; MONOCYTES # (AUTO) 0.52 x10^3/uL (0.2-0.8); MONOCYTES % (AUTO) 10 % (2-9); NEUTROPHILS # (AUTO) 3.87 x10^3/uL (1.8-6.8); NEUTROPHILS % (AUTO) 74 % (42-75)
[2018-02-11] MEDS ORDERED: PHYTONADIONE 1 MG/0.5ML IV ONE (06:44)
[2018-02-11] MEDS: INSULIN LISPRO 100 UNITS/ML, PEN SQ-INSULIN SCH ×4 (07:00→20:19)
[2018-02-11] MEDS: ALBUTEROL/IPRATROPIUM 2.5MG/0.5MG, 3 ML NPPB SCH ×3 (07:10→16:50)
[2018-02-11] MEDS: OMEPRAZOLE 20 MG CAPSULE.DR PO SCH (08:10)
[2018-02-11] MEDS: FUROSEMIDE 80 MG TABLET PO SCH ×2 (08:10→16:57)
[2018-02-11 08:34] VITALS: BP 132/66
[2018-02-11] MEDS: SUCRALFATE 1 GM TABLET PO SCH (09:00)
[2018-02-11] MEDS ORDERED: DEXTROSE 5% IV ONE (09:00)
[2018-02-11] MEDS: CALCITRIOL 0.25 MCG CAPSULE PO SCH (09:00)
[2018-02-11] MEDS: DOCUSATE 100 MG CAPSULE PO SCH (09:00)
[2018-02-11] MEDS ORDERED: PHYTONADIONE IV ONE (09:00)
[2018-02-11] MEDS: AMIODARONE 200 MG TABLET PO SCH ×2 (09:00→20:18)
[2018-02-11] MEDS: SODIUM CHLORIDE FLUSH 10ML SYR IVF SCH ×2 (09:28→21:26)
[2018-02-11 14:30] LABS: INTERNATIONAL NORMALIZED RATIO 2.28 (0.93-1.1); PROTHROMBIN TIME 23.3 Seconds (9.6-11.5)
[2018-02-11] MEDS ORDERED: PHYTONADIONE 5 MG in DEXTROSE 5% 50 ML IV ONE (15:30)
[2018-02-11] MEDS: IRON SUCROSE COMPLEX 100MG/5ML IV SCH (15:31)
[2018-02-11 15:58] VITALS: BP 120/61
[2018-02-11] MEDS: ACETAMINOPHEN 325 MG TABLET PO PRN (16:07)
[2018-02-11] MEDS ORDERED: ALBUTEROL/IPRATROPIUM 2.5MG/0.5MG, 3 ML ONE (16:35)
[2018-02-11 20:17] VITALS: BP 120/73
[2018-02-11] MEDS: ATORVASTATIN 40 MG TABLET PO SCH (20:18)
[2018-02-11] MEDS: INSULIN GLARGINE 100 UNITS/ML, PEN SQ-INSULIN SCH (20:19)
[2018-02-11] MEDS ORDERED: MAALOX/HYOSCYAMINE/LIDOCAINE 45 ML BTL PO ONE (21:30)
[2018-02-12] MEDS: CLINDAMYCIN 300 MG CAPSULE PO SCH (02:11)
[2018-02-12 02:30] VITALS: BP 110/66
[2018-02-12 04:38] LABS: MEAN CORPUSCULAR HGB CONC 32.3 g/dL (32.4-35.8); MEAN CORPUSCULAR VOLUME 89.9 fL (80-100); MEAN PLATELET VOLUME 8.6 fL (7.4-10.4); PLATELET COUNT 230 x10^3/uL (130-400); RED BLOOD COUNT 3.87 x10^6/uL (3.82-5.3); RED CELL DISTRIBUTION WIDTH 23.4 % (9.6-15.2)
[2018-02-12 04:49] LABS: ALBUMIN 3.7 g/dL (3.4-5.0); ANION GAP 7 mmol/L (5-15); CALCIUM 8.6 mg/dL (8.5-10.1); CHLORIDE 97 mmol/L (98-107)
[2018-02-12 04:51] LABS: CREATININE 3.17 mg/dL (0.55-1.02)
[2018-02-12 04:55] LABS: BASOPHILS # (AUTO) 0.11 x10^3/uL (0-0.1); BASOPHILS % (AUTO) 2 % (0-1); EOSINOPHILS # (AUTO) 0.14 x10^3/uL (0-0.4); EOSINOPHILS % (AUTO) 2 % (1-7); LYMPHOCYTES # (AUTO) 0.73 x10^3/uL (1-3.4); LYMPHOCYTES % (AUTO) 10 % (22-44); MD MORPH REVIEW ONLY; MONOCYTES # (AUTO) 0.67 x10^3/uL (0.2-0.8); MONOCYTES % (AUTO) 9 % (2-9); NEUTROPHILS # (AUTO) 5.52 x10^3/uL (1.8-6.8); NEUTROPHILS % (AUTO) 77 % (42-75)
[2018-02-12 04:56] LABS: ANISOCYTOSIS 1+; OVALOCYTES 1+
[2018-02-12 04:57] LABS: <PLATELET ESTIMATE> ADEQUATE; <PLT MORPHOLOGY> NORMAL PLT MORPH; POLYCHROMASIA 1+
[2018-02-12 05:18] LABS: INTERNATIONAL NORMALIZED RATIO 1.42 (0.93-1.1); PROTHROMBIN TIME 14.7 Seconds (9.6-11.5)
[2018-02-12] MEDS: LEVOTHYROXINE 25 MCG TABLET PO SCH (05:53)
[2018-02-12] MEDS: INSULIN LISPRO 100 UNITS/ML, PEN SQ-INSULIN SCH ×3 (07:00→16:40)
[2018-02-12] MEDS: OMEPRAZOLE 20 MG CAPSULE.DR PO SCH (07:30)
[2018-02-12 07:47] VITALS: BP 139/56
[2018-02-12] MEDS: FUROSEMIDE 80 MG TABLET PO SCH ×2 (08:00→17:08)
[2018-02-12] MEDS: CALCITRIOL 0.25 MCG CAPSULE PO SCH (08:24)
[2018-02-12] MEDS: DOCUSATE 100 MG CAPSULE PO SCH (08:24)
[2018-02-12] MEDS: SUCRALFATE 1 GM TABLET PO SCH (08:24)
[2018-02-12] MEDS: AMIODARONE 200 MG TABLET PO SCH (08:24)
[2018-02-12] MEDS ORDERED: LIDOCAINE 2%, 20ML ONE (09:06)
[2018-02-12] MEDS: SODIUM CHLORIDE FLUSH 10ML SYR IVF SCH (09:11)
[2018-02-12] MEDS ORDERED: FLUMAZENIL 0.1 MG/1 ML, 5ML ONE (10:28)
[2018-02-12] MEDS ORDERED: FENTANYL PF 100 MCG/2ML ONE (10:28)
[2018-02-12] MEDS ORDERED: NALOXONE 1 MG/ML, 2ML ONE (10:28)
[2018-02-12] MEDS ORDERED: MIDAZOLAM 1 MG/ML, 5ML ONE (10:28)
[2018-02-12] MEDS ORDERED: DARBEPOETIN 60 MCG/ML SQ SCH (13:15)
[2018-02-12] MEDS ORDERED: INSU100I13 SQ-INSULIN (16:26)
[2018-02-12] MEDS ORDERED: FURO80TA3 PO (16:26)
[2018-02-12] MEDS ORDERED: ERGO500017 PO (16:46)
[2018-02-12] MEDS: OXYcodone 5 MG/5 ML ORAL.SOL UDC PO PRN (18:24)
== END 2018-02-12 18:50 | disposition home or self-care (01) | DRG 673 ==
LOC: ED 10:20 → EDIP 10:25 → ED 10:28 → 5SO 13:21 → 3NW 02-04 14:24
PROVIDERS: ADMIT Family Medicine; ATTEND Family Medicine
PROC: B548ZZA Ultrasonography of Superior Vena Cava, Guidance (ICD-10-PCS; 2018-02-08)
PROC: 5A1D70Z Performance of Urinary Filtration, Intermittent, Less than 6 Hours Per Day (ICD-10-PCS; 2018-02-08)
PROC: 02HV33Z Insertion of Infusion Device into Superior Vena Cava, Percutaneous Approach (ICD-10-PCS; 2018-02-08)
PROC: B5181ZA Fluoroscopy of Superior Vena Cava using Low Osmolar Contrast, Guidance (ICD-10-PCS; 2018-02-08)
PROC: 5A1D70Z Performance of Urinary Filtration, Intermittent, Less than 6 Hours Per Day (ICD-10-PCS; 2018-02-09)
PROC: 5A1D70Z Performance of Urinary Filtration, Intermittent, Less than 6 Hours Per Day (ICD-10-PCS; 2018-02-10)
PROC: 30233L1 Transfusion of Nonautologous Fresh Plasma into Peripheral Vein, Percutaneous Approach (ICD-10-PCS; 2018-02-10)
PROC: 30233K1 Transfusion of Nonautologous Frozen Plasma into Peripheral Vein, Percutaneous Approach (ICD-10-PCS; 2018-02-10)
PROC: 5A1D70Z Performance of Urinary Filtration, Intermittent, Less than 6 Hours Per Day (ICD-10-PCS; 2018-02-11)
PROC: 0JH63XZ Insertion of Tunneled Vascular Access Device into Chest Subcutaneous Tissue and Fascia, Percutaneous Approach (ICD-10-PCS; principal; 2018-02-12)
PROC: 05HM33Z Insertion of Infusion Device into Right Internal Jugular Vein, Percutaneous Approach (ICD-10-PCS; 2018-02-12)
PROC: B543ZZA Ultrasonography of Right Jugular Veins, Guidance (ICD-10-PCS; 2018-02-12)
PROC: 5A1D70Z Performance of Urinary Filtration, Intermittent, Less than 6 Hours Per Day (ICD-10-PCS; 2018-02-12)
PROC: B5131ZA Fluoroscopy of Right Jugular Veins using Low Osmolar Contrast, Guidance (ICD-10-PCS; 2018-02-12)
DX: N17.0 Acute kidney failure with tubular necrosis (principal); I50.33 Acute on chronic diastolic (congestive) heart failure; I13.2 Hypertensive heart and chronic kidney disease with heart failure and with stage 5 chronic kidney disease, or end stage renal disease; E11.21 Type 2 diabetes mellitus with diabetic nephropathy; E11.649 Type 2 diabetes mellitus with hypoglycemia without coma; I48.91 Unspecified atrial fibrillation; L03.115 Cellulitis of right lower limb; N39.0 Urinary tract infection, site not specified; L03.116 Cellulitis of left lower limb; Z68.41 Body mass index [BMI] 40.0-44.9, adult; R56.9 Unspecified convulsions; E11.65 Type 2 diabetes mellitus with hyperglycemia; N18.6 End stage renal disease; N25.0 Renal osteodystrophy; D63.8 Anemia in other chronic diseases classified elsewhere; E03.9 Hypothyroidism, unspecified; E11.22 Type 2 diabetes mellitus with diabetic chronic kidney disease; I35.1 Nonrheumatic aortic (valve) insufficiency; J44.9 Chronic obstructive pulmonary disease, unspecified; K21.9 Gastro-esophageal reflux disease without esophagitis; E78.5 Hyperlipidemia, unspecified; E66.9 Obesity, unspecified; H11.32 Conjunctival hemorrhage, left eye; I25.10 Atherosclerotic heart disease of native coronary artery without angina pectoris; Z99.81 Dependence on supplemental oxygen; Z99.2 Dependence on renal dialysis; Z98.61 Coronary angioplasty status; Z90.710 Acquired absence of both cervix and uterus; Z86.73 Personal history of transient ischemic attack (TIA), and cerebral infarction without residual deficits; Z79.4 Long term (current) use of insulin; Z79.01 Long term (current) use of anticoagulants; Z87.891 Personal history of nicotine dependence; Z79.899 Other long term (current) drug therapy; Z88.6 Allergy status to analgesic agent; Z88.8 Allergy status to other drugs, medicaments and biological substances
CPT/HCPCS: 36415; 36556; 36565; 51702; 70450; 70551; 71045; 76770; 76937; 77001; 80048; 80053; 80069; 80074; 81001; 81003; 82306; 82310; 82330; 82533; 82570; 82728; 82962; 83036; 83540; 83550; 83605; 83735; 83880; 83883; 83970; 84100; 84155; 84156; 84165; 84166; 84439; 84443; 84484; 84550; 85025; 85610; 86480; 86706; 86850; 86900; 87077; 87086; 87186; 87205; 87324; 87400; 93005; 93306; 93880; 94640; 96374; 96375; 99156; 99157; C1894; J0881; J1756; J1940; J2250; J3010; J3430; J3480; J3490; J7042; J7620; C1750; C1751; J1205; J1642; J1815; J2310; J3475; J7050; P9017

== ENCOUNTER 2018-04-08 09:27 | Inpatient (IN) | payer OTHER, MEDICAID ==
[~2018-04-08] VITALS: Ht 172.7 cm; Wt 134.5 kg
[~2018-04-08 09:27] MED LIST changes: +CALC0.25 PO; +ERGO500017 PO; +FURO80TA3 PO; +OXYC1TAB9 PO; +SUCR1TAB PO
[2018-04-08] MEDS ORDERED: SODIUM CHLORIDE 0.9% 1,000 ML IV ONE (09:58)
[2018-04-08] MEDS ORDERED: ACETAMINOPHEN 500 MG TABLET PO ONE (10:00)
[2018-04-08] MEDS ORDERED: ACETAMINOPHEN 500 MG TABLET ONE (10:26)
[2018-04-08 10:52] LABS: BASOPHILS # (AUTO) 0.02 x10^3/uL (0-0.1); BASOPHILS % (AUTO) 0 % (0-1); EOSINOPHILS % (AUTO) 0 % (1-7); LYMPHOCYTES # (AUTO) 0.36 x10^3/uL (1-3.4); LYMPHOCYTES % (AUTO) 4 % (22-44); MD NO; MEAN CORPUSCULAR HEMOGLOBIN 32.2 pg (27.0-34.8); MEAN CORPUSCULAR HGB CONC 33.7 g/dL (32.4-35.8); MEAN CORPUSCULAR VOLUME 95.4 fL (80-100); MEAN PLATELET VOLUME 9.6 fL (7.4-10.4); MONOCYTES # (AUTO) 0.76 x10^3/uL (0.2-0.8); MONOCYTES % (AUTO) 8 % (2-9); NEUTROPHILS # (AUTO) 8.75 x10^3/uL (1.8-6.8); NEUTROPHILS % (AUTO) 89 % (42-75); PLATELET COUNT 156 x10^3/uL (130-400); RED CELL DISTRIBUTION WIDTH 20.6 % (9.6-15.2)
[2018-04-08 10:58] LABS: CULTURE INDICATED? YES; MICROSCOPIC INDICATED
[2018-04-08 11:00] LABS: INTERNATIONAL NORMALIZED RATIO 3.85 (0.93-1.1)
[2018-04-08 11:04] LABS: ALBUMIN 2.8 g/dL (3.4-5.0); ANION GAP 12 mmol/L (5-15); CALCIUM 8.3 mg/dL (8.5-10.1); CHLORIDE 93 mmol/L (98-107)
[2018-04-08 11:07] LABS: ALANINE AMINOTRANSFERASE 20 U/L (12-78); ALKALINE PHOSPHATASE 98 U/L (45-117); BILIRUBIN,TOTAL 0.9 mg/dL (0.2-1.0); CREATININE 5.67 mg/dL (0.55-1.02); TOTAL PROTEIN 6.9 g/dL (6.4-8.2)
[2018-04-08] MEDS ORDERED: CEFTRIAXONE PMX 1GM/50ML 50 ML IVPB ONE (11:30)
[2018-04-08] MEDS ORDERED: OMEP-110 PO (11:49)
[2018-04-08] MEDS ORDERED: INSU100V8 SQ (11:51)
[2018-04-08] MEDS ORDERED: PHYTONADIONE 10 MG/ML, 1ML SQ ONE (12:00)
[2018-04-08] MEDS ORDERED: CEFTRIAXONE PMX 1GM/50ML 50 ML ONE (12:01)
[2018-04-08] MEDS ORDERED: PHYTONADIONE 10 MG/ML, 1ML ONE (12:01)
[2018-04-08] MEDS ORDERED: DOCUSATE 100 MG CAPSULE PO PRN (16:00)
[2018-04-08] MEDS ORDERED: GLUCAGON 1 MG IM PRN (16:00)
[2018-04-08] MEDS ORDERED: ONDANSETRON ODT 4 MG PO PRN (16:00)
[2018-04-08] MEDS ORDERED: ACETAMINOPHEN 325 MG TABLET PO PRN (16:00)
[2018-04-08] MEDS ORDERED: ONDANSETRON 2MG/ML, 2ML IVPush PRN (16:00)
[2018-04-08] MEDS ORDERED: hydrALAzine 20 MG/ML, 1ML IVPush PRN (16:00)
[2018-04-08] MEDS ORDERED: LABETALOL 5MG/ML, 20ML IVPush PRN (16:00)
[2018-04-08] MEDS ORDERED: DEXTROSE 50%, 50ML SYRINGE IVPush PRN (16:00)
[2018-04-08] MEDS ORDERED: DEXTROSE 4 GM TAB.CHEW PO PRN (16:00)
[2018-04-08 16:20] VITALS: BP 123/67
[2018-04-08 16:55] LABS: HEMOGLOBIN A1C 9.1 % (4.2-6.3)
[2018-04-08 18:40] VITALS: BP 137/69
[2018-04-08] MEDS: ATORVASTATIN 80 MG TABLET PO SCH ×2 (21:00→21:36)
[2018-04-08] MEDS: SODIUM CHLORIDE 0.9% 1,000 ML IV SCH (21:19)
[2018-04-08] MEDS: INSULIN LISPRO 100 UNITS/ML, PEN SQ-INSULIN SCH (21:20)
[2018-04-08] MEDS: SODIUM CHLORIDE FLUSH 10ML SYR IVF SCH (21:20)
[2018-04-08] MEDS: INSULIN GLARGINE 100 UNITS/ML, PEN SQ-INSULIN SCH (21:21)
[2018-04-08] MEDS: HYDROcodone/APAP 10/325 MG TABLET PO PRN (21:36)
[2018-04-08 22:46] VITALS: BP 102/60
[2018-04-08 23:01] VITALS: BP 106/57
[2018-04-08] MEDS ORDERED: DIPHENHYDRAMINE 25 MG CAPSULE PO ONE (23:30)
[2018-04-08 23:33] VITALS: BP 106/63
[2018-04-08 23:48] VITALS: BP 117/68
[2018-04-09] VITALS (7 sets, daily range): BP systolic 112–138; BP diastolic 66–76
[2018-04-09] MEDS: LEVOTHYROXINE 150 MCG TABLET PO SCH (05:23)
[2018-04-09 05:50] LABS: BASOPHILS # (AUTO) 0.02 x10^3/uL (0-0.1); BASOPHILS % (AUTO) 0 % (0-1); EOSINOPHILS # (AUTO) 0.05 x10^3/uL (0-0.4); EOSINOPHILS % (AUTO) 1 % (1-7); LYMPHOCYTES # (AUTO) 0.47 x10^3/uL (1-3.4); LYMPHOCYTES % (AUTO) 6 % (22-44); MD NO; MEAN CORPUSCULAR HEMOGLOBIN 31.7 pg (27.0-34.8); MEAN CORPUSCULAR HGB CONC 33.6 g/dL (32.4-35.8); MEAN CORPUSCULAR VOLUME 94.6 fL (80-100); MEAN PLATELET VOLUME 9.4 fL (7.4-10.4); MONOCYTES # (AUTO) 0.83 x10^3/uL (0.2-0.8); MONOCYTES % (AUTO) 11 % (2-9); NEUTROPHILS # (AUTO) 6.15 x10^3/uL (1.8-6.8); NEUTROPHILS % (AUTO) 82 % (42-75); PLATELET COUNT 141 x10^3/uL (130-400); RED BLOOD COUNT 3.39 x10^6/uL (3.82-5.3); RED CELL DISTRIBUTION WIDTH 20.5 % (9.6-15.2)
[2018-04-09 05:56] LABS: INTERNATIONAL NORMALIZED RATIO 1.6 (0.93-1.1); PROTHROMBIN TIME 16.5 Seconds (9.6-11.5)
[2018-04-09 06:01] LABS: ALBUMIN 2.7 g/dL (3.4-5.0); ANION GAP 13 mmol/L (5-15); CALCIUM 7.9 mg/dL (8.5-10.1); CHLORIDE 95 mmol/L (98-107)
[2018-04-09 06:05] LABS: ALANINE AMINOTRANSFERASE 23 U/L (12-78); ALKALINE PHOSPHATASE 101 U/L (45-117); BILIRUBIN,TOTAL 0.8 mg/dL (0.2-1.0); CREATININE 5.06 mg/dL (0.55-1.02); TOTAL PROTEIN 6.9 g/dL (6.4-8.2)
[2018-04-09] MEDS ORDERED: CEFTRIAXONE 1,000 MG in SODIUM CHLORIDE 0.9% 50 ML IV SCH (07:30)
[2018-04-09] MEDS: OMEPRAZOLE 20 MG CAPSULE.DR PO SCH (07:30)
[2018-04-09] MEDS: FUROSEMIDE 80 MG TABLET PO SCH ×2 (08:00→17:00)
[2018-04-09] MEDS: INSULIN LISPRO 100 UNITS/ML, PEN SQ-INSULIN SCH ×4 (08:24→20:57)
[2018-04-09] MEDS: SODIUM CHLORIDE FLUSH 10ML SYR IVF SCH ×2 (08:25→21:14)
[2018-04-09] MEDS: SENNA/DOCUSATE TABLET PO SCH (09:00)
[2018-04-09] MEDS ORDERED: LIDOCAINE-MPF 1%, 2ML ONE (09:31)
[2018-04-09] MEDS: AMIODARONE 200 MG TABLET PO SCH ×2 (11:19→21:13)
[2018-04-09] MEDS: HYDROcodone/APAP 10/325 MG TABLET PO PRN (19:49)
[2018-04-09] MEDS: SODIUM CHLORIDE 0.9% 1,000 ML IV SCH (21:13)
[2018-04-09] MEDS: ATORVASTATIN 80 MG TABLET PO SCH (21:13)
[2018-04-09] MEDS: INSULIN GLARGINE 100 UNITS/ML, PEN SQ-INSULIN SCH (21:14)
[2018-04-10 00:30] VITALS: BP 131/54
[2018-04-10] MEDS: LEVOTHYROXINE 150 MCG TABLET PO SCH (05:20)
[2018-04-10 05:31] LABS: INTERNATIONAL NORMALIZED RATIO 1.16 (0.93-1.1)
[2018-04-10 05:36] LABS: ALBUMIN 2.5 g/dL (3.4-5.0); ANION GAP 9 mmol/L (5-15); CALCIUM 8.1 mg/dL (8.5-10.1); CHLORIDE 97 mmol/L (98-107)
[2018-04-10 05:37] LABS: BASOPHILS # (AUTO) 0.03 x10^3/uL (0-0.1); BASOPHILS % (AUTO) 0 % (0-1); EOSINOPHILS # (AUTO) 0.06 x10^3/uL (0-0.4); EOSINOPHILS % (AUTO) 1 % (1-7); LYMPHOCYTES # (AUTO) 0.76 x10^3/uL (1-3.4); LYMPHOCYTES % (AUTO) 11 % (22-44); MD NO; MEAN CORPUSCULAR HEMOGLOBIN 31.7 pg (27.0-34.8); MEAN CORPUSCULAR HGB CONC 32.9 g/dL (32.4-35.8); MEAN CORPUSCULAR VOLUME 96.2 fL (80-100); MEAN PLATELET VOLUME 9.6 fL (7.4-10.4); MONOCYTES # (AUTO) 0.99 x10^3/uL (0.2-0.8); MONOCYTES % (AUTO) 14 % (2-9); NEUTROPHILS # (AUTO) 5.17 x10^3/uL (1.8-6.8); NEUTROPHILS % (AUTO) 74 % (42-75); PLATELET COUNT 166 x10^3/uL (130-400); RED BLOOD COUNT 3.35 x10^6/uL (3.82-5.3); RED CELL DISTRIBUTION WIDTH 19.7 % (9.6-15.2)
[2018-04-10 05:45] LABS: ALANINE AMINOTRANSFERASE 40 U/L (12-78); ALKALINE PHOSPHATASE 119 U/L (45-117); BILIRUBIN,TOTAL 0.9 mg/dL (0.2-1.0); CREATININE 2.99 mg/dL (0.55-1.02); TOTAL PROTEIN 6.8 g/dL (6.4-8.2)
[2018-04-10 07:24] VITALS: BP 117/72
[2018-04-10] MEDS ORDERED: CEFTRIAXONE PMX 2GM/50ML 50 ML IV SCH (07:30)
[2018-04-10] MEDS ORDERED: POTASSIUM CHLORIDE 20 MEQ TAB.ER.PRT PO ONE (08:00)
[2018-04-10] MEDS: INSULIN LISPRO 100 UNITS/ML, PEN SQ-INSULIN SCH ×4 (08:37→21:54)
[2018-04-10] MEDS: SODIUM CHLORIDE FLUSH 10ML SYR IVF SCH ×2 (08:38→21:55)
[2018-04-10] MEDS: FUROSEMIDE 80 MG TABLET PO SCH ×2 (08:38→17:20)
[2018-04-10] MEDS: SENNA/DOCUSATE TABLET PO SCH (08:38)
[2018-04-10] MEDS: OMEPRAZOLE 20 MG CAPSULE.DR PO SCH (08:48)
[2018-04-10] MEDS: SODIUM CHLORIDE 0.9% 1,000 ML IV SCH (12:49)
[2018-04-10 14:04] VITALS: BP 120/69
[2018-04-10] MEDS: WARFARIN 3 MG TABLET PO-COUM SCH (17:19)
[2018-04-10] MEDS: HEPARIN 5,000 UNITS/ML, 1ML SQ SCH (17:20)
[2018-04-10 18:24] VITALS: BP_SYST 115; BP_SYST 15; BP_DIAS 65
[2018-04-10] MEDS: ATORVASTATIN 80 MG TABLET PO SCH (21:50)
[2018-04-10] MEDS: AMIODARONE 200 MG TABLET PO SCH (21:50)
[2018-04-10] MEDS: INSULIN GLARGINE 100 UNITS/ML, PEN SQ-INSULIN SCH (21:55)
[2018-04-10] MEDS: HYDROcodone/APAP 10/325 MG TABLET PO PRN (21:55)
[2018-04-11 01:46] VITALS: BP 109/54
[2018-04-11 05:28] LABS: BASOPHILS # (AUTO) 0.05 x10^3/uL (0-0.1); BASOPHILS % (AUTO) 1 % (0-1); EOSINOPHILS # (AUTO) 0.14 x10^3/uL (0-0.4); EOSINOPHILS % (AUTO) 2 % (1-7); LYMPHOCYTES # (AUTO) 0.87 x10^3/uL (1-3.4); LYMPHOCYTES % (AUTO) 11 % (22-44); MD NO; MEAN CORPUSCULAR HEMOGLOBIN 32.2 pg (27.0-34.8); MEAN CORPUSCULAR HGB CONC 33.2 g/dL (32.4-35.8); MEAN CORPUSCULAR VOLUME 96.9 fL (80-100); MEAN PLATELET VOLUME 9.4 fL (7.4-10.4); MONOCYTES # (AUTO) 0.93 x10^3/uL (0.2-0.8); MONOCYTES % (AUTO) 12 % (2-9); NEUTROPHILS # (AUTO) 5.73 x10^3/uL (1.8-6.8); NEUTROPHILS % (AUTO) 74 % (42-75); PLATELET COUNT 188 x10^3/uL (130-400); RED BLOOD COUNT 3.22 x10^6/uL (3.82-5.3); RED CELL DISTRIBUTION WIDTH 19.8 % (9.6-15.2)
[2018-04-11 05:37] LABS: ANION GAP 9 mmol/L (5-15); CHLORIDE 100 mmol/L (98-107)
[2018-04-11 05:39] LABS: CREATININE 3.84 mg/dL (0.55-1.02)
[2018-04-11] MEDS: LEVOTHYROXINE 150 MCG TABLET PO SCH (05:57)
[2018-04-11] MEDS: HEPARIN 5,000 UNITS/ML, 1ML SQ SCH ×2 (05:57→17:14)
[2018-04-11 08:07] VITALS: BP 127/61
[2018-04-11] MEDS: FUROSEMIDE 80 MG TABLET PO SCH ×2 (08:11→17:13)
[2018-04-11] MEDS: OMEPRAZOLE 20 MG CAPSULE.DR PO SCH (08:11)
[2018-04-11] MEDS: INSULIN LISPRO 100 UNITS/ML, PEN SQ-INSULIN SCH ×4 (08:19→20:18)
[2018-04-11] MEDS: WARFARIN 3 MG TABLET PO-COUM SCH (09:00)
[2018-04-11] MEDS: CEFDINIR 300 MG CAPSULE PO SCH (09:30)
[2018-04-11] MEDS: AMIODARONE 200 MG TABLET PO SCH (09:30)
[2018-04-11] MEDS: SENNA/DOCUSATE TABLET PO SCH (09:30)
[2018-04-11] MEDS: SODIUM CHLORIDE FLUSH 10ML SYR IVF SCH ×2 (09:32→20:14)
[2018-04-11 13:16] VITALS: BP 116/56
[2018-04-11 19:25] VITALS: BP 153/79
[2018-04-11] MEDS: ATORVASTATIN 80 MG TABLET PO SCH (20:13)
[2018-04-11] MEDS: INSULIN GLARGINE 100 UNITS/ML, PEN SQ-INSULIN SCH (20:18)
[2018-04-12 02:26] VITALS: BP 113/60
[2018-04-12] MEDS: LEVOTHYROXINE 150 MCG TABLET PO SCH (06:00)
[2018-04-12] MEDS: HEPARIN 5,000 UNITS/ML, 1ML SQ SCH (06:00)
[2018-04-12 06:48] VITALS: BP 111/57
[2018-04-12] MEDS: CEFDINIR 300 MG CAPSULE PO SCH (07:57)
[2018-04-12] MEDS: AMIODARONE 200 MG TABLET PO SCH (07:57)
[2018-04-12] MEDS: SENNA/DOCUSATE TABLET PO SCH (07:57)
[2018-04-12] MEDS: OMEPRAZOLE 20 MG CAPSULE.DR PO SCH (07:57)
[2018-04-12] MEDS: FUROSEMIDE 80 MG TABLET PO SCH ×2 (07:58→17:07)
[2018-04-12] MEDS: SODIUM CHLORIDE FLUSH 10ML SYR IVF SCH ×2 (07:58→20:16)
[2018-04-12] MEDS: INSULIN LISPRO 100 UNITS/ML, PEN SQ-INSULIN SCH ×4 (07:59→20:09)
[2018-04-12] MEDS: HYDROcodone/APAP 10/325 MG TABLET PO PRN (09:54)
[2018-04-12 12:42] VITALS: BP 111/59
[2018-04-12] MEDS ORDERED: POLYETHYLENE GLYCOL 17 GM PACKET PO PRN (14:30)
[2018-04-12 20:02] VITALS: BP 103/57
[2018-04-12] MEDS: ATORVASTATIN 80 MG TABLET PO SCH (20:08)
[2018-04-12] MEDS: INSULIN GLARGINE 100 UNITS/ML, PEN SQ-INSULIN SCH (20:09)
[2018-04-13 03:06] VITALS: BP 115/59
[2018-04-13 04:58] LABS: BASOPHILS # (AUTO) 0.09 x10^3/uL (0-0.1); BASOPHILS % (AUTO) 1 % (0-1); EOSINOPHILS # (AUTO) 0.18 x10^3/uL (0-0.4); EOSINOPHILS % (AUTO) 2 % (1-7); LYMPHOCYTES # (AUTO) 1.17 x10^3/uL (1-3.4); LYMPHOCYTES % (AUTO) 14 % (22-44); MD NO; MEAN CORPUSCULAR HEMOGLOBIN 32.1 pg (27.0-34.8); MEAN CORPUSCULAR HGB CONC 33.5 g/dL (32.4-35.8); MEAN CORPUSCULAR VOLUME 95.8 fL (80-100); MEAN PLATELET VOLUME 9.2 fL (7.4-10.4); MONOCYTES # (AUTO) 0.64 x10^3/uL (0.2-0.8); MONOCYTES % (AUTO) 8 % (2-9); NEUTROPHILS # (AUTO) 6.39 x10^3/uL (1.8-6.8); NEUTROPHILS % (AUTO) 75 % (42-75); PLATELET COUNT 269 x10^3/uL (130-400); RED BLOOD COUNT 3.44 x10^6/uL (3.82-5.3); RED CELL DISTRIBUTION WIDTH 19.1 % (9.6-15.2)
[2018-04-13 04:59] LABS: INTERNATIONAL NORMALIZED RATIO 1.05 (0.93-1.1); PROTHROMBIN TIME 10.9 Seconds (9.6-11.5)
[2018-04-13 05:01] LABS: ANION GAP 9 mmol/L (5-15); CALCIUM 8.5 mg/dL (8.5-10.1); CHLORIDE 95 mmol/L (98-107)
[2018-04-13 05:02] LABS: CREATININE 3.38 mg/dL (0.55-1.02)
[2018-04-13] MEDS: LEVOTHYROXINE 150 MCG TABLET PO SCH (05:48)
[2018-04-13] MEDS: INSULIN LISPRO 100 UNITS/ML, PEN SQ-INSULIN SCH ×3 (07:00→16:00)
[2018-04-13] MEDS: OMEPRAZOLE 20 MG CAPSULE.DR PO SCH ×2 (07:30→12:48)
[2018-04-13] MEDS: FUROSEMIDE 80 MG TABLET PO SCH ×3 (07:33→16:49)
[2018-04-13] MEDS: SENNA/DOCUSATE TABLET PO SCH ×2 (07:35→12:49)
[2018-04-13 07:44] VITALS: BP 135/66
[2018-04-13] MEDS: SODIUM CHLORIDE FLUSH 10ML SYR IVF SCH (09:00)
[2018-04-13] MEDS: AMIODARONE 200 MG TABLET PO SCH (09:00)
[2018-04-13] MEDS ORDERED: FENTANYL PF 100 MCG/2ML ONE (11:28)
[2018-04-13] MEDS ORDERED: MIDAZOLAM 1 MG/ML, 5ML ONE (11:28)
[2018-04-13] MEDS ORDERED: LIDOCAINE 2%, 20ML ONE (11:28)
[2018-04-13 12:31] VITALS: BP 133/71
[2018-04-13] MEDS: CEFDINIR 300 MG CAPSULE PO SCH (12:49)
[2018-04-13] MEDS ORDERED: CEFD300C37 PO (15:40)
== END 2018-04-13 18:50 | disposition home or self-care (01) | DRG 291 ==
LOC: ED 10:56 → EDIP 12:12 → 4WST 14:43
PROVIDERS: ADMIT Internal Medicine; ATTEND Internal Medicine
PROC: 30233N1 Transfusion of Nonautologous Red Blood Cells into Peripheral Vein, Percutaneous Approach (ICD-10-PCS; 2018-04-08)
PROC: 30233L1 Transfusion of Nonautologous Fresh Plasma into Peripheral Vein, Percutaneous Approach (ICD-10-PCS; 2018-04-08)
PROC: 30233K1 Transfusion of Nonautologous Frozen Plasma into Peripheral Vein, Percutaneous Approach (ICD-10-PCS; 2018-04-08)
PROC: 5A1D70Z Performance of Urinary Filtration, Intermittent, Less than 6 Hours Per Day (ICD-10-PCS; principal; 2018-04-09)
PROC: 02HV33Z Insertion of Infusion Device into Superior Vena Cava, Percutaneous Approach (ICD-10-PCS; 2018-04-09)
PROC: B5181ZA Fluoroscopy of Superior Vena Cava using Low Osmolar Contrast, Guidance (ICD-10-PCS; 2018-04-09)
PROC: 5A1D70Z Performance of Urinary Filtration, Intermittent, Less than 6 Hours Per Day (ICD-10-PCS; 2018-04-12)
PROC: 0JH63XZ Insertion of Tunneled Vascular Access Device into Chest Subcutaneous Tissue and Fascia, Percutaneous Approach (ICD-10-PCS; 2018-04-13)
PROC: 02HV33Z Insertion of Infusion Device into Superior Vena Cava, Percutaneous Approach (ICD-10-PCS; 2018-04-13)
PROC: B5181ZA Fluoroscopy of Superior Vena Cava using Low Osmolar Contrast, Guidance (ICD-10-PCS; 2018-04-13)
DX: I13.2 Hypertensive heart and chronic kidney disease with heart failure and with stage 5 chronic kidney disease, or end stage renal disease (principal); N18.6 End stage renal disease; D68.9 Coagulation defect, unspecified; E11.22 Type 2 diabetes mellitus with diabetic chronic kidney disease; E11.40 Type 2 diabetes mellitus with diabetic neuropathy, unspecified; R78.81 Bacteremia; I31.3 Pericardial effusion (noninflammatory); N30.01 Acute cystitis with hematuria; B96.89 Other specified bacterial agents as the cause of diseases classified elsewhere; D64.9 Anemia, unspecified; B96.20 Unspecified Escherichia coli [E. coli] as the cause of diseases classified elsewhere; E78.5 Hyperlipidemia, unspecified; I25.10 Atherosclerotic heart disease of native coronary artery without angina pectoris; I48.91 Unspecified atrial fibrillation; I50.9 Heart failure, unspecified; K21.9 Gastro-esophageal reflux disease without esophagitis; Z66 Do not resuscitate; Z79.01 Long term (current) use of anticoagulants; Z79.4 Long term (current) use of insulin; Z87.891 Personal history of nicotine dependence; Z90.710 Acquired absence of both cervix and uterus; Z98.61 Coronary angioplasty status; Z99.2 Dependence on renal dialysis; E66.9 Obesity, unspecified; D63.1 Anemia in chronic kidney disease; E03.9 Hypothyroidism, unspecified; J44.9 Chronic obstructive pulmonary disease, unspecified
CPT/HCPCS: 36415; 36430; 36556; 71045; 76937; 77001; 80048; 80053; 81001; 82962; 83036; 83605; 83735; 84100; 84550; 85025; 85610; 85730; 86705; 86706; 86850; 86900; 87040; 87077; 87086; 87186; 87340; 93005; 96372; 99156; 99157; J0696; J1644; J2250; J3010; J3430; J3490; C1750; C1751; J1642; J1815; J7030; P9017; Q0163

== ENCOUNTER 2018-07-05 07:27 | Day surgery (SDC) | payer OTHER, MEDICAID ==
[~2018-07-05] VITALS: Ht 172.7 cm; Wt 112.5 kg
[~2018-07-05 07:27] MED LIST changes: +CEFD300C37 PO; +INSU100V8 SQ; +OXYC-432 PO; -OXYC1TAB9 PO
[2018-07-05] MEDS ORDERED: SODIUM CHLORIDE 0.9% 1,000 ML IV SCH (08:10)
[2018-07-05 08:32] VITALS: BP 164/18
[2018-07-05] MEDS ORDERED: ALBUTEROL SULFATE 2.5 MG/3 ML ONE (09:25)
[2018-07-05] MEDS ORDERED: HEPARIN 1,000 UNITS/ML, 10ML ONE (10:00)
[2018-07-05] MEDS ORDERED: FENTANYL PF 100 MCG/2ML ONE (10:36)
[2018-07-05] MEDS ORDERED: PROPOFOL 10 MG/ML, 20ML ONE (11:41)
[2018-07-05] MEDS ORDERED: LIDOCAINE-MPF 2% ,5ML ONE (11:41)
[2018-07-05] MEDS ORDERED: CEFAZOLIN 1,000 MG ONE ×2 (11:42)
[2018-07-05] MEDS ORDERED: PROMETHAZINE 25 MG/ML, 1ML IV PRN (12:00)
[2018-07-05] MEDS ORDERED: OXYcodone 5 MG/5 ML ORAL.SOL UDC PO PRN (12:00)
[2018-07-05] MEDS ORDERED: ALBUTEROL SULFATE 2.5 MG/3 ML NPPB PRN (12:00)
[2018-07-05] MEDS ORDERED: ACETAMINOPHEN 325 MG TABLET PO PRN (12:00)
[2018-07-05] MEDS ORDERED: FENTANYL PF 100 MCG/2ML IV PRN (12:00)
[2018-07-05] MEDS ORDERED: ACETAMINOPHEN 650 MG/20.3 ML UDC ONE (12:16)
[2018-07-05] MEDS ORDERED: OXYcodone 5 MG/5 ML ORAL.SOL UDC ONE (12:17)
[2018-07-05] MEDS ORDERED: PROTAMINE SULFATE 10 MG/ML, 5ML IVPush ONE (15:00)
== END 2018-07-05 16:30 | disposition home or self-care (01) ==
LOC: OUT 07:27
PROVIDERS: ATTEND Surgery Vascular Surgery
DX: E11.22 Type 2 diabetes mellitus with diabetic chronic kidney disease (principal); I13.2 Hypertensive heart and chronic kidney disease with heart failure and with stage 5 chronic kidney disease, or end stage renal disease; I50.9 Heart failure, unspecified; N18.6 End stage renal disease; Z90.710 Acquired absence of both cervix and uterus; D64.9 Anemia, unspecified; J44.9 Chronic obstructive pulmonary disease, unspecified; I25.10 Atherosclerotic heart disease of native coronary artery without angina pectoris; Z98.62 Peripheral vascular angioplasty status; K21.9 Gastro-esophageal reflux disease without esophagitis; E78.00 Pure hypercholesterolemia, unspecified; E03.9 Hypothyroidism, unspecified; Z79.01 Long term (current) use of anticoagulants; Z79.4 Long term (current) use of insulin; Z87.891 Personal history of nicotine dependence; Z79.899 Other long term (current) drug therapy
CPT/HCPCS: 36415; 36821; 71045; 80047; 93005; 94640; J0690; J1644; J2704; J2720; J3010; J3490; J7030

== ENCOUNTER 2019-01-03 12:28 | Observation (INO) | payer MEDICARE, MEDICAID ==
[~2019-01-03] VITALS: Ht 172.7 cm; Wt 114.6 kg
[~2019-01-03 12:28] MED LIST changes: +AMIO400T5 PO; +CARV3.1212 PO; +CEPH-376 PO; +DOXY100C2 PO; +FLUT1DIS3 INH; +LOSA25TA25 PO; -LOSA25TA5 PO; +OXYC5TAB3 PO; +PANT40TA5 PO; +TIOT4MIS5 INH
--- NOTE | 2019-01-03 12:38 | NUR ---
PT BIB [facility] FROM [facility] WITH C/O PRODUCTIVE COUGH WITH GREENISH YELLOW SPUTUM, BURNING WITH URNIATION, AND FEBRILE. PT STATES COUCH HAS BEEN GOING ON SINCE LAST ADMISSION. WAS PT ON STROIDS RECENTLY AND STATES WHILE ON STEROIDS COUGH IMPROVED. STATES PAINFUL URINATION STARTED 2 DAYS AGO. PT WAS 101 FOR [facility]. PT SLIGHLY PALE, WARM, AND DRY. MILD AMOUNT OF DISTRESS NOTED. BREATHING REGULAR AND UNLABORED. POC DISCUSSED. AWAITING EVAL. EKG COMPLETED BY TECH. PT ON [employer]IST, CONT. PULSE OX, AND BP.
[2019-01-03 13:13] LABS: BASOPHILS # (AUTO) 0.04 x10^3/uL (0-0.1); BASOPHILS % (AUTO) 1 % (0-1); EOSINOPHILS # (AUTO) 0.11 x10^3/uL (0-0.4); EOSINOPHILS % (AUTO) 2 % (1-7); LYMPHOCYTES # (AUTO) 0.37 x10^3/uL (1-3.4); LYMPHOCYTES % (AUTO) 6 % (22-44); MD NO; MEAN CORPUSCULAR HEMOGLOBIN 32.1 pg (27.0-34.8); MEAN CORPUSCULAR HGB CONC 33.1 g/dL (32.4-35.8); MEAN PLATELET VOLUME 8.7 fL (7.4-10.4); MONOCYTES # (AUTO) 0.37 x10^3/uL (0.2-0.8); MONOCYTES % (AUTO) 6 % (2-9); NEUTROPHILS # (AUTO) 5.01 x10^3/uL (1.8-6.8); NEUTROPHILS % (AUTO) 85 % (42-75); PLATELET COUNT 180 x10^3/uL (130-400); RED BLOOD COUNT 2.99 x10^6/uL (3.82-5.3); RED CELL DISTRIBUTION WIDTH 19.1 % (9.6-15.2)
[2019-01-03 13:23] LABS: ALANINE AMINOTRANSFERASE 20 U/L (12-78); ALBUMIN 2.9 g/dL (3.4-5.0); ANION GAP 5 mmol/L (5-15); CHLORIDE 97 mmol/L (98-107); CREATININE 4.21 mg/dL (0.55-1.02)
[2019-01-03 13:25] LABS: ALKALINE PHOSPHATASE 76 U/L (45-117); TOTAL PROTEIN 6.8 g/dL (6.4-8.2)
--- NOTE | 2019-01-03 13:44 | NUR ---
PT UP TO . URINE SAMPLE COLLECTED AND SENT TO LAB.
[2019-01-03 14:08] LABS: CULTURE INDICATED? YES; MICROSCOPIC INDICATED
--- NOTE | 2019-01-03 14:29 | NUR ---
REPORT TO KRISTAL BABCOCK.
[2019-01-03] MEDS ORDERED: ACETAMINOPHEN 325 MG TABLET PO PRN (14:30)
[2019-01-03] MEDS ORDERED: LABETALOL 5MG/ML, 20ML IVPush PRN (14:30)
[2019-01-03] MEDS ORDERED: POLYETHYLENE GLYCOL 17 GM PACKET PO PRN (14:30)
[2019-01-03] MEDS ORDERED: ONDANSETRON 2MG/ML, 2ML IVPush PRN (14:30)
[2019-01-03] MEDS ORDERED: BISACODYL 10 MG SUPP PR PRN (14:30)
[2019-01-03] MEDS ORDERED: ENALAPRILAT 1.25 MG/ML, 2ML IVPush PRN (14:30)
[2019-01-03] MEDS ORDERED: DOCUSATE 100 MG CAPSULE PO PRN (14:30)
[2019-01-03] MEDS ORDERED: CEFTRIAXONE 1,000 MG IV SCH (14:30)
[2019-01-03 14:52] LABS: THYROID STIMULATING HORMONE 1.44 mIU/L (0.358-3.740)
[2019-01-03] MEDS ORDERED: VANCOMYCIN PER PHARMACY MC PRN (15:00)
--- NOTE | 2019-01-03 15:25 | NUR ---
PT TO FLOOR WITH EMT.
[2019-01-03 15:45] VITALS: BP 145/64
[2019-01-03] MEDS ORDERED: PHARMACOKINETIC MONITORING MC PRN (16:00)
[2019-01-03] MEDS ORDERED: PHARMACOKINETIC CONSULTATION MC ONE (16:00)
[2019-01-03] MEDS: INSULIN LISPRO 100 UNITS/ML, PEN SQ-INSULIN SCH ×2 (16:00→21:13)
[2019-01-03] MEDS ORDERED: ALBUTEROL/IPRATROPIUM 2.5MG/0.5MG, 3 ML HHN PRN (16:00)
[2019-01-03] MEDS: ALBUTEROL/IPRATROPIUM 2.5MG/0.5MG, 3 ML NPPB SCH ×2 (16:43→22:30)
[2019-01-03] MEDS ORDERED: VANCOMYCIN 2,200 MG in SODIUM CHLORIDE 0.9% 500 ML IV ONE (17:00)
[2019-01-03] MEDS: CEFTRIAXONE PMX 2GM/50ML 50 ML IVPB SCH (17:09)
[2019-01-03] MEDS: PANTOPROZOLE 40MG TABLET PO SCH ×2 (17:10→21:17)
[2019-01-03] MEDS: CARVEDILOL 3.125 MG TABLET PO SCH (17:11)
[2019-01-03 19:01] VITALS: BP 93/56
[2019-01-03] MEDS: BUDESONIDE 0.5 MG/2 ML INHA NPPB SCH (21:00)
[2019-01-03] MEDS ORDERED: TEMPLATE NON-FORMULARY MED. (Fluticasone/Salmeterol** (Advair 250-50 Diskus**) 1 PUFF) INH SCH (21:00)
[2019-01-03] MEDS ORDERED: TIOTROPIUM BROMIDE INH SCH (21:00)
[2019-01-03] MEDS: AMIODARONE 200 MG TABLET PO SCH (21:17)
[2019-01-03] MEDS: ATORVASTATIN 80 MG TABLET PO SCH (21:17)
[2019-01-03] MEDS: INSULIN GLARGINE 100 UNITS/ML, PEN SQ-INSULIN SCH (21:18)
[2019-01-03] MEDS: HYDROcodone/APAP 5/325 TABLET PO PRN (21:34)
[2019-01-04 03:20] VITALS: BP 97/57
[2019-01-04] MEDS: LEVOTHYROXINE 150 MCG TABLET PO SCH (05:52)
[2019-01-04] MEDS: CARVEDILOL 3.125 MG TABLET PO SCH ×2 (05:52→18:29)
[2019-01-04] MEDS: PANTOPROZOLE 40MG TABLET PO SCH ×2 (05:52→21:36)
[2019-01-04 06:11] LABS: CHLORIDE 97 mmol/L (98-107)
[2019-01-04 06:14] LABS: BASOPHILS # (AUTO) 0.04 x10^3/uL (0-0.1); BASOPHILS % (AUTO) 1 % (0-1); EOSINOPHILS # (AUTO) 0.13 x10^3/uL (0-0.4); EOSINOPHILS % (AUTO) 2 % (1-7); LYMPHOCYTES # (AUTO) 0.45 x10^3/uL (1-3.4); LYMPHOCYTES % (AUTO) 8 % (22-44); MD NO; MEAN CORPUSCULAR HEMOGLOBIN 32.1 pg (27.0-34.8); MEAN CORPUSCULAR HGB CONC 33.6 g/dL (32.4-35.8); MEAN CORPUSCULAR VOLUME 95.8 fL (80-100); MEAN PLATELET VOLUME 8.7 fL (7.4-10.4); MONOCYTES # (AUTO) 0.43 x10^3/uL (0.2-0.8); MONOCYTES % (AUTO) 7 % (2-9); NEUTROPHILS # (AUTO) 4.82 x10^3/uL (1.8-6.8); NEUTROPHILS % (AUTO) 82 % (42-75); PLATELET COUNT 161 x10^3/uL (130-400); RED BLOOD COUNT 2.81 x10^6/uL (3.82-5.3); RED CELL DISTRIBUTION WIDTH 19.4 % (9.6-15.2)
[2019-01-04 06:21] LABS: % IRON SATURATION 22 % (20-55); ANION GAP 7 mmol/L (5-15); CALCIUM 7.6 mg/dL (8.5-10.1); CREATININE 4.49 mg/dL (0.55-1.02); IRON LEVEL 37 mcg/dL (50-170); TOTAL IRON BINDING CAPACITY 166 mcg/dL (250-450)
[2019-01-04] MEDS: INSULIN LISPRO 100 UNITS/ML, PEN SQ-INSULIN SCH ×4 (07:00→21:38)
[2019-01-04] MEDS: BUDESONIDE 0.5 MG/2 ML INHA NPPB SCH ×2 (07:45→21:00)
[2019-01-04] MEDS: ALBUTEROL/IPRATROPIUM 2.5MG/0.5MG, 3 ML NPPB SCH ×3 (07:45→21:00)
[2019-01-04] MEDS: AMIODARONE 200 MG TABLET PO SCH ×2 (08:38→21:36)
[2019-01-04 08:46] VITALS: BP 110/62
[2019-01-04 14:45] VITALS: BP 128/55
[2019-01-04] MEDS: CEFTRIAXONE PMX 2GM/50ML 50 ML IVPB SCH (18:29)
[2019-01-04] MEDS ORDERED: ARANESP 100 MCG/ML **ESRD SQ SCH (19:30)
[2019-01-04 19:41] VITALS: BP 122/54
[2019-01-04] MEDS: HYDROcodone/APAP 5/325 TABLET PO PRN (21:36)
[2019-01-04] MEDS: ATORVASTATIN 80 MG TABLET PO SCH (21:36)
[2019-01-04] MEDS: INSULIN GLARGINE 100 UNITS/ML, PEN SQ-INSULIN SCH (21:38)
[2019-01-05] MEDS: ALBUTEROL/IPRATROPIUM 2.5MG/0.5MG, 3 ML NPPB SCH ×3 (00:17→14:10)
[2019-01-05 01:26] VITALS: BP 126/58
[2019-01-05] MEDS: PANTOPROZOLE 40MG TABLET PO SCH (05:52)
[2019-01-05] MEDS: LEVOTHYROXINE 150 MCG TABLET PO SCH (05:52)
[2019-01-05] MEDS: CARVEDILOL 3.125 MG TABLET PO SCH (05:52)
[2019-01-05 05:57] LABS: BASOPHILS # (AUTO) 0.03 x10^3/uL (0-0.1); BASOPHILS % (AUTO) 1 % (0-1); EOSINOPHILS # (AUTO) 0.08 x10^3/uL (0-0.4); EOSINOPHILS % (AUTO) 1 % (1-7); LYMPHOCYTES # (AUTO) 0.52 x10^3/uL (1-3.4); LYMPHOCYTES % (AUTO) 9 % (22-44); MD NO; MEAN CORPUSCULAR HEMOGLOBIN 31.5 pg (27.0-34.8); MEAN CORPUSCULAR HGB CONC 32.8 g/dL (32.4-35.8); MEAN PLATELET VOLUME 8.3 fL (7.4-10.4); MONOCYTES # (AUTO) 0.64 x10^3/uL (0.2-0.8); MONOCYTES % (AUTO) 11 % (2-9); NEUTROPHILS % (AUTO) 78 % (42-75); PLATELET COUNT 163 x10^3/uL (130-400); RED CELL DISTRIBUTION WIDTH 19.3 % (9.6-15.2)
[2019-01-05 06:09] LABS: ANION GAP 7 mmol/L (5-15); CALCIUM 7.8 mg/dL (8.5-10.1); CHLORIDE 100 mmol/L (98-107)
[2019-01-05 06:11] LABS: CREATININE 3.63 mg/dL (0.55-1.02)
[2019-01-05] MEDS: BUDESONIDE 0.5 MG/2 ML INHA NPPB SCH (07:00)
[2019-01-05] MEDS: INSULIN LISPRO 100 UNITS/ML, PEN SQ-INSULIN SCH ×2 (07:00→11:20)
[2019-01-05 07:50] VITALS: BP 114/45
[2019-01-05] MEDS: AMIODARONE 200 MG TABLET PO SCH (09:00)
[2019-01-05 11:58] LABS: RAPID INFLUENZA A Negative (Negative); RAPID INFLUENZA B Negative (Negative)
== END 2019-01-05 15:42 | disposition home or self-care (01) ==
LOC: ED 13:26 → EDIP 13:27 → INTOOBSV 13:27 → ED 14:13 → 4WST 15:30
PROVIDERS: ADMIT Family Medicine; ATTEND Family Medicine
DX: R55 Syncope and collapse (principal); E11.22 Type 2 diabetes mellitus with diabetic chronic kidney disease; I13.2 Hypertensive heart and chronic kidney disease with heart failure and with stage 5 chronic kidney disease, or end stage renal disease; I25.10 Atherosclerotic heart disease of native coronary artery without angina pectoris; I25.5 Ischemic cardiomyopathy; N18.6 End stage renal disease; I48.2 Chronic atrial fibrillation; J44.9 Chronic obstructive pulmonary disease, unspecified; K21.9 Gastro-esophageal reflux disease without esophagitis; N25.0 Renal osteodystrophy; D63.1 Anemia in chronic kidney disease; E03.9 Hypothyroidism, unspecified; E87.1 Hypo-osmolality and hyponatremia; I25.2 Old myocardial infarction; Z79.4 Long term (current) use of insulin; Z87.440 Personal history of urinary (tract) infections; Z87.891 Personal history of nicotine dependence; Z90.710 Acquired absence of both cervix and uterus; Z86.73 Personal history of transient ischemic attack (TIA), and cerebral infarction without residual deficits; Z95.5 Presence of coronary angioplasty implant and graft; Z99.2 Dependence on renal dialysis; Z99.81 Dependence on supplemental oxygen
CPT/HCPCS: 36415; 71045; 80048; 80053; 81001; 82728; 82962; 83540; 83550; 83605; 83735; 83880; 84100; 84145; 84443; 85025; 85730; 86705; 86706; 87040; 87086; 87340; 87400; 93005; 94640; 96365; 96366; 96367; 96372; 97162; 99284; G0378; J0696; J0882; J1815; J3370; J7040; J7620; J7626; 96374; 96375; 99285

== ENCOUNTER 2019-01-07 10:45 | Emergency (ER) | payer MEDICARE, MEDICAID ==
--- NOTE | 2019-01-07 11:03 | NUR ---
AT 1058, FAMILY AT BEDSIDE. CPR REMAINS IN PROGRESS; CPR STOPPED PER FAMILY REQUEST AND TIME OF CALLED AT 1058
--- NOTE | 2019-01-07 11:03 | NUR ---
PT ARRIVES POST 3 ROUNDS EPINEPHRINE AND 4 ATTEMPTS AT DEFIBRILLATION. 300 MG AMIODARONE GIVEN FOR DISORGANIZED RHYTHM. 7.5FR ETT TAPED AT 22 CM AT LIP. GOOD BILAT BREATH SOUNDS. BAGGED BY RT UPON ARRIVAL TO ED. COMPRESSIONS PER EMS CHEST COMPRESSION MACHINE. GOOD FEMORAL PULSES WITH COMPRESSIONS. IO TO RIGHT TIBIA PATENT. NS INFUSING PER PRESSURE BAG. SEE CODE SHEET.
[2019-01-07] MEDS ORDERED: DEXTROSE 50%, 50ML SYRINGE ONE (11:14)
[2019-01-07] MEDS ORDERED: CODE BLUE RESPONSE XX ONE (11:14)
[2019-01-07] MEDS ORDERED: SODIUM BICARB 8.4%, 50ML SYRINGE ONE (11:14)
[2019-01-07] MEDS ORDERED: CALCIUM CHLORIDE 10%, 10ML SYR ONE (11:14)
[2019-01-07] MEDS ORDERED: EPINEPHRINE SYRINGE 0.1 MG/ML, 10ML ONE (11:14)
[2019-01-07] MEDS ORDERED: INSULIN SINGLE DOSE, ER SQ-INSULIN ONE (11:19)
[2019-01-07] MEDS ORDERED: INSULIN REGULAR 100 UNITS/ML, 3ML VIAL IV ONE (11:30)
--- NOTE | 2019-01-07 12:00 | NUR ---
PREPPING PT FOR M[place]GUE. PT FAMILY HAS LEFT THE BUILDING AFTER TALKING WITH SOCIAL WORK. ALL PATIENT BELONGINGS IN PATIENT BELONGING BAG. BLACK SHOES, BLACK SOCKS, NAVY PANTS, BEIGE BRA, BLACK SHIRT AND PURPLE SWEATER. NO JEWLERY, WATCHES, RINGS OR NECKLACES ON PATIENT. PER PHARMACY, ALL MEDICATIONS WITH PATIENT BELONGINGS, ALONG WITH A STEP BY STEP INSTRUCTION SHEET ON PROPER MEDICATION WASTE.
--- NOTE | 2019-01-07 12:51 | NUR ---
[facility] TRANSPORTED [place] [facility] [place]
== END 2019-01-07 13:07 | disposition expired ==
LOC: ED 11:35
DX: I46.9 Cardiac arrest, cause unspecified (principal); J44.9 Chronic obstructive pulmonary disease, unspecified; I10 Essential (primary) hypertension; E11.9 Type 2 diabetes mellitus without complications; I48.91 Unspecified atrial fibrillation; Z86.73 Personal history of transient ischemic attack (TIA), and cerebral infarction without residual deficits; Z90.710 Acquired absence of both cervix and uterus; Z87.891 Personal history of nicotine dependence
CPT/HCPCS: 36415; 80047; 92950; 99291; J1815